=== PATIENT | male | born 1980 | race Caucasian/White ===

== ENCOUNTER 2017-09-04 16:56 | Emergency (ER) | payer OTHER, SELFPAY | END 2017-09-04 18:53 | disposition home or self-care (01) | PROVIDERS: Emergency Provider Emergency Medicine; Family Provider Nurse Practitioner Family; Visit Provider Emergency Medicine | DX: G45.9 Transient cerebral ischemic attack, unspecified (principal); I10 Essential (primary) hypertension; R51 Headache; Z72.0 Tobacco use; F41.8 Other specified anxiety disorders; Z79.82 Long term (current) use of aspirin; J45.909 Unspecified asthma, uncomplicated | CPT/HCPCS: 70450; 80053; 82550; 82553; 84484; 85025; 93005; 93041; 96374; 99284 ==

== ENCOUNTER → 2017-09-05 | Outpatient (POV) | payer OTHER, SELFPAY | PROVIDERS: Visit Provider Internal Medicine | DX: R07.9 Chest pain, unspecified (principal); I10 Essential (primary) hypertension | CPT/HCPCS: 93005 ==

== ENCOUNTER 2017-09-30 14:37 | Emergency (ER) | payer OTHER, SELFPAY ==
--- NOTE | 2017-09-30 | CT_ITS ---
CT head/brain wo con Ordering Physician: Lenin Sands MD Patient Age: 36 years: Male HISTORY: TECHNIQUE: Routine CT head without contrast. CT brain and bone windows performed and sent and submitted to PACS. COMPARISON :CT head 09/04/2017.. Also November 28, 2016 FINDINGS No acute intracranial findings. No hemorrhage. No mass. No subdural collection no territorial infarct. & Posterior fossa appears satisfactory. Unremarkable.. Ventricles and basal cisterns appear satisfactory, and clear Skull intact Paranasal sinuses. Mild to moderate mucosal thickening ethmoid air cells bilaterally. Scant mucosal thickening floor frontal sinuses just above junction with ethmoid air cells. Sphenoid sinus with scant mucosal thickening anteriorly as well.. Orbits unremarkable. Mastoid air cells, IACs, middle air appear satisfactory. No significant findings. Critical result called to ADRIANA in ER on 09/30/2017 3:10 PM. IMPRESSION: ========= No acute intracranial findings. Stable CT head versus 2017 studies Mild to moderate mucosal thickening ethmoid air cells bilateral instantly noted
[2017-09-30 14:37] VITALS: BP 150/88; PULSE 98; RESP 14; TEMP 36.7; O2SAT 98; BMI 27.1
--- NOTE | 2017-09-30 15:01 | PC.NURSE ---
PT RETURNED FROM CT
[2017-09-30 15:26] LABS: Basophils # 0.1 K/mm3 (0-0.2); Basophils % 0.8 % (0.1-2.0); Eosinophils # 0.9 K/mm3 (0.0-0.4); Eosinophils % 8.5 % (0.1-12.0); Hematocrit 48.9 % (42.0-52.0); Lymphocytes # 2.1 K/mm3 (0.7-4.5); Lymphocytes % 19.7 K/mm3 (10-50); Mean Corpuscular HGB Conc 32.6 g/dL (31.8-35.4); Mean Corpuscular Volume 91.9 fl (80-94); Mean Platelet Volume 7.8 fl (7.4-10.4); Monocytes # 0.5 K/mm3 (0.1-1.0); Monocytes % 4.8 % (1.7-9.3); Neutrophils # 7.1 K/mm3 (1.8-7.8); Neutrophils % 66.2 % (37.0-80.0); Platelet Count 462 K/mm3 (142-424); Red Blood Count 5.32 M/mm3 (4.60-6.20); White Blood Count 10.8 K/mm3 (4.8-10.8)
[2017-09-30 15:51] LABS: Alanine Aminotransferase 44 U/L (12-78); Alkaline Phosphatase 70 U/L (46-116); Anion Gap 12.9 mEq/L (5-15); Aspartate Amino Transferase 27 U/L (15-37); Bilirubin,Total 0.1 mg/dL (0.2-1.0); Blood Urea Nitrogen 19 mg/dL (7-18); Calcium 9.4 mg/dL (8.5-10.1); Carbon Dioxide 28 mmol/L (21.0-32.0); Chloride 101 mmol/L (98-107); Creatine Kinase 90 U/L (39-308); Creatinine Clearance Estimated 121 mL/min (0-300); Creatinine,Serum 1.08 mg/dL (0.70-1.30); Estimated Glomerular Filt Rate 77 ml/min (>60); GFR (African American) 94 ML/MIN (>60); Globulin 4.1 gm/dl (1.3-3.2); Glucose 93 mg/dL (74-106); Potassium 4.9 mmoL/L (3.5-5.1); Sodium 137 mmol/L (136-145); Total Protein,Serum 8.1 gm/dL (6.4-8.2); Troponin I < 0.02 ng/ml (0.00-0.06)
[2017-09-30 15:54] LABS: CKMB Relative Index 0.6 U/L (0-4.0); Creatine Kinase MB < 0.5 mg/ml (0.0-3.6)
[2017-09-30 16:29] VITALS: BP 124/88; PULSE 85; RESP 18; O2SAT 98
[2017-09-30 17:30] LABS: Creatine Kinase 90 U/L (39-308); Troponin I < 0.02 ng/ml (0.00-0.06)
[2017-09-30 17:37] LABS: CKMB Relative Index 0.6 U/L (0-4.0); Creatine Kinase MB < 0.5 mg/ml (0.0-3.6)
--- NOTE | 2017-09-30 17:45 | HMH.EDNEU ---
ED Disposition Clinical Impression: Adverse drug effect Qualifiers: Encounter type: initial encounter Qualified Code(s): T88.7XXA - Unspecified adverse effect of drug or medicament, initial encounter Chest pain Qualifiers: Chest pain type: other chest pain Qualified Code(s): R07.89 - Other chest pain Disposition: Home, Self-Care Condition on Discharge: Good Instructions: DI for Adverse Drug Reaction -- Other Additional Instructions: Please follow-up with your family physician as well as the patient clerical assistant in the next few days regarding your recent ER visit. Prescriptions: Butalb/Acetaminophen/Caffeine [Fioricet 50-300-40 mg Capsule] 1 each PO BID #6 cap Referrals: Candice Rowland APRN [Primary Care Provider] - Lucio Zapata MD [Staff Physician] - Forms: Work/School Release Time of Disposition: 17:47 - Critical Care Critical Care Time: No Attestation: On 09/30/17, the high probability of a clinically significant, sudden or life threatening deterioration of the following system(s) required my full and direct attention, intervention and personal management. The time I documented below is in addition to time spent performing reported procedures but includes the following listed in this critical care notation. Medical Decision Making - Medical Records Medical records reviewed: Yes: I reviewed the patient's medical records. Vital Signs: 09/30/17 14:37 09/30/17 16:29 09/30/17 18:03 Temperature 98.1 F 98.0 F Temperature Source Oral Oral Pulse Rate 96 H Pulse Rate [Left Brachial] 98 H 85 Respiratory Rate 14 18 20 Blood Pressure 146/86 Blood Pressure [Right Arm] 150/88 124/88 Blood Pressure Mean [Right Arm] 108 100 Blood Pressure Source Automatic Cuff Blood Pressure Source [Right Arm] Automatic Cuff Automatic Cuff Blood Pressure Position Sitting Blood Pressure Position [Right Arm] Sitting Sitting 02 Sat by Pulse Oximetry 98 98 Oxygen Delivery Method Room Air Room Air Room Air - Lab Data Lab results reviewed: Yes: I reviewed the patient's lab results. Lab Results 09/30/17 15:15: WBC 10.8, RBC 5.32, Hgb 16.0, Hct 48.9, MCV 91.9, MCH 30.0, MCHC 32.6, RDW 13.0, Plt Count 462 H, MPV 7.8, Neut % (Auto) 66.2, Lymph % (Auto) 19.7, [place] % (Auto) 4.8, Eos % (Auto) 8.5, Baso % (Auto) 0.8, Neut # (Auto) 7.1, Lymph # (Auto) 2.1, [place] # (Auto) 0.5, Eos # (Auto) 0.9 H, Baso # (Auto) 0.1 09/30/17 15:15: Sodium 137, Potassium 4.9, Chloride 101, Carbon Dioxide 28, Anion Gap 12.9, BUN 19 H, Creatinine 1.08, Estimated Creat Clear 121, Estimated GFR 77, Est GFR ( Amer) 94, Glucose 93, Calcium 9.4, Total Bilirubin 0.1 L, AST 27, ALT 44, Alkaline Phosphatase 70, Total Creatine Kinase 90, CK-MB (CK-2) < 0.5, CK-MB (CK-2) Rel Index 0.6, Troponin I < 0.02, Total Protein 8.1, Albumin 4.0, Globulin 4.1 H, Albumin/Globulin Ratio 1.0 L 09/30/17 17:05: Total Creatine Kinase 90, CK-MB (CK-2) < 0.5, CK-MB (CK-2) Rel Index 0.6, Troponin I < 0.02 Result diagrams: 09/30/17 15:15 09/30/17 15:15 Orders (Tests/Meds): ORDERS Category Date Time Status CT head request [CT Request head] Stat Cat Scan 09/30/17 14:45 Taken - CT Data CT Scan: Head Time Received: 14:[address] Reviewed: Yes: I have reviewed the patient's CT results, I discussed the CT results w/the radiologist, I have viewed the radiologist's interpretation Preliminary Findings: Normal/NAD - ECG Data Tracing #1 I reviewed this ECG and interpreted as documented below: NAD, no ectopy, no acute ischemic changes ECG normal with no acute: arrhythmias, ischemia, conduction abnormalities, chamber hypertrophy - Gil Inquiry Pt receiving controlled substance: No - Reevaluation(s) Time: 17:30 Reevaluation #1: patient in NAD, denies any complaints, he has had similar episodes in the past, fully worked p, I believe today's symptoms are due to new medication just started, Topamax. Advised pt to see his PCP and review his medications.
[2017-09-30 18:03] VITALS: BP 146/86; PULSE 96; RESP 20; TEMP 36.7; O2SAT 98
== END 2017-09-30 18:04 | disposition home or self-care (01) ==
PROVIDERS: Emergency Provider Emergency Medicine; PCP Nurse Practitioner Family
DX: R20.2 Paresthesia of skin (principal); R07.9 Chest pain, unspecified; T42.6X5A Adverse effect of other antiepileptic and sedative-hypnotic drugs, initial encounter; I10 Essential (primary) hypertension; Z86.73 Personal history of transient ischemic attack (TIA), and cerebral infarction without residual deficits; Z79.82 Long term (current) use of aspirin; Z79.899 Other long term (current) drug therapy; Z87.891 Personal history of nicotine dependence
CPT/HCPCS: 70450; 80053; 82550; 82553; 84484; 85025; 93005; 93041; 99284

== ENCOUNTER → 2017-10-02 11:50 | Outpatient (CLI) | payer OTHER, SELFPAY ==
--- NOTE | 2017-10-02 11:56 | XR_ITS ---
EXAM: XR cervical spine 5V HISTORY: ITS.REASON: numbness in deven arms ORDERING PHYSICIAN: Candice Rowland PATIENT AGE: 36 years COMPARISON: None FINDINGS: Normal alignment. No fracture or dislocation. No lytic or blastic change. No significant degenerative change. The disc spaces are preserved. No evidence of cervical rib IMPRESSION: Normal cervical spine
== END ==
PROVIDERS: PCP Nurse Practitioner Family; Visit Provider Nurse Practitioner Family
DX: R20.0 Anesthesia of skin (principal); R20.2 Paresthesia of skin; R51 Headache; Z86.73 Personal history of transient ischemic attack (TIA), and cerebral infarction without residual deficits
CPT/HCPCS: 72050

== ENCOUNTER → 2017-10-18 07:42 | Outpatient (CLI) | payer OTHER, SELFPAY ==
--- NOTE | 2017-10-18 07:45 | MR_ITS ---
MR head/brain wo con HISTORY: Headache, syncope, blurred vision, multiple TIAs and prior stroke ORDERING PHYSICIAN: Candice Rowland PATIENT AGE: 36 years COMPARISON: CT scan of 09/30/2017 TECHNIQUE: Standard multiplanar multiecho sequences are performed without contrast. FINDINGS: No midline shift or mass effect is evident. No hydrocephalus or acute infarction. There is normal joya-white matter differentiation with no abnormal white matter signal intensity apparent. No acute or chronic infarctions evident. The hippocampal Katerine right are unremarkable in the temporal horns are symmetric. No cerebellar tonsillar ectopia. The pituitary, optic chiasm, and corpus callosum have an unremarkable appearance. There is mild mucosal thickening of the ethmoid, sphenoid, and frontal sinuses. No sinus air-fluid level. No mastoid effusion. No large aneurysms are evident. Smaller aneurysms may not be seen with this technique and may be better evaluated with MRA if clinically warranted. IMPRESSION: 1. No acute intracranial findings. 2. Paranasal sinus disease
--- NOTE | 2017-10-18 07:45 | MR_ITS ---
MR cervical spine wo con, MR 3-d myelogram/MRCP HISTORY: Headaches and numbness and tingling in fingers ORDERING PHYSICIAN: Candice Rowland PATIENT AGE: 36 years COMPARISON: Cervical spine radiographs 10/02/2017 TECHNIQUE: Standard multiplanar multiecho sequences are performed without contrast. 3-D MIP and myelographic images are also rendered and reviewed FINDINGS: The craniocervical junction has an unremarkable appearance. There is normal alignment. C2-C3: Mild concentric bulging disc. No impingement. C3-C4, C4-C5, C5-C6, C6-C7 and C7-T1 have an unremarkable appearance. No disc herniation or canal stenosis. No paravertebral mass or abnormal fluid collection. The spinal cord has unremarkable signal characteristics. IMPRESSION: Mild concentric bulging disc at C2-C3 otherwise negative MRI of the cervical spine
== END ==
PROVIDERS: PCP Nurse Practitioner Family; Visit Provider Nurse Practitioner Family
DX: Z86.73 Personal history of transient ischemic attack (TIA), and cerebral infarction without residual deficits (principal); R51 Headache; R20.0 Anesthesia of skin; R20.2 Paresthesia of skin
CPT/HCPCS: 70551; 72141; 76376

== ENCOUNTER 2017-10-30 16:12 | Emergency (ER) | payer OTHER, SELFPAY ==
[2017-10-30 16:38] VITALS: BP 151/86; PULSE 102; RESP 18; TEMP 36.6; O2SAT 96; BMI 21.8
--- NOTE | 2017-10-30 18:03 | HMH.EDGENADL ---
ED Disposition Clinical Impression: Anxiety Insomnia Qualifiers: Insomnia type: due to other mental disorder Qualified Code(s): F51.05 - Insomnia due to other mental disorder; F99 - Mental disorder, not otherwise specified Bipolar disorder Qualifiers: Active/Remission status: currently active Current bipolar episode type: manic Current episode severity: moderate Qualified Code(s): F31.12 - Bipolar disorder, current episode manic without psychotic features, moderate Disposition: Home, Self-Care Condition on Discharge: Good Instructions: DI for Anxiety -- Adult, DI for Insomnia, DI for Bipolar Disorder Additional Instructions: Call Candice Rowland tomorrow for further treatment. Additional instructions for CONTROLLED SUBSTANCES: You have been prescribed a medication that is a controlled substance. Controlled substances include pain medications known as opiates and sedative nerve medications known as benzodiazepines. Some common opiates include: Codeine (such as Tylenol #3) Hydrocodone (Vicodin, Lortab, Lorcet, Brohard) Oxycodone (Percocet, Percodan, Oxycodone, Oxy IR) Some common benzodiazepines include: Diazepam (Valium) Lorazepam (Ativan) Alprazolam (Xanax) Clonazepam (Klonopin) Oxazepam (Serax) All of these controlled substances are highly addictive and frequently abused. Misuse can and frequently does lead to addiction as well as overdose and . Medication should be stored in a locked cabinet or other secure storage unit. Do not store the medication in a motor vehicle. Short term supplies, 3 days or less, are prescribed because of the highly addictive nature of the medication. Any of the controlled substance medication NOT taken should be disposed of properly and NOT SAVED. The recommended method of disposing of unused medications is: Place the medicines in a sealable plastic bag. If the medicine is a solid, crush it or add water to dissolve it. Add something undesirable (cat litter, coffee grounds, etc.) Dispose of sealed bag in household trash Do not flush or pour unused medicines down a sink or drain. Controlled substances should not be shared, given away or sold. Because of the addictive nature and frequent abuse, these medications are sometimes stolen. These medications should be kept in a safe place where they cannot be stolen. Do not keep them in your car or purse. Lost or stolen prescriptions for controlled substances WILL NOT BE REFILLED in this emergency department, regardless of whether a police report was filed. Prescriptions: LORazepam [Ativan 1mg tablet] 1 mg PO TIDP PRN #3 tab PRN Reason: Anxiety Referrals: Candice Rowland APRN [Primary Care Provider] - - Critical Care Critical Care Time: No Attestation: On 10/30/17, the high probability of a clinically significant, sudden or life threatening deterioration of the following system(s) required my full and direct attention, intervention and personal management. The time I documented below is in addition to time spent performing reported procedures but includes the following listed in this critical care notation. Medical Decision Making Vital Signs: 10/30/17 16:38 Temperature 97.8 F Temperature Source Oral Pulse Rate [Right Brachial] 102 H Respiratory Rate 18 Blood Pressure [Right Arm] 151/86 Blood Pressure Mean [Right Arm] 107 Blood Pressure Source [Right Arm] Automatic Cuff Blood Pressure Position [Right Arm] Sitting 02 Sat by Pulse Oximetry 96 Oxygen Delivery Method Room Air - ECG Data Tracing #1 EKG interpreted by Jorge Benites MD: Rhythm: sinus Rate: * [place]: normal Ectopy: none Conduction: normal ST Segment Changes: none T Wave Changes: none Q Waves: none No evidence of acute ischemia or injury Normal EKG - Gil Inquiry Pt receiving controlled substance: Yes Gil was queried for this patient: Yes Reference #:: [id number] Risks and benefits of using a controlled substance: were
[2017-10-30 20:38] VITALS: BP 133/92; PULSE 96; RESP 20; TEMP 36.6; O2SAT 98
== END 2017-10-30 20:38 | disposition home or self-care (01) ==
PROVIDERS: Emergency Provider Emergency Medicine; PCP Nurse Practitioner Family
DX: F41.9 Anxiety disorder, unspecified (principal); F51.05 Insomnia due to other mental disorder; F99 Mental disorder, not otherwise specified; F31.12 Bipolar disorder, current episode manic without psychotic features, moderate; R07.9 Chest pain, unspecified; Z86.73 Personal history of transient ischemic attack (TIA), and cerebral infarction without residual deficits; Z86.79 Personal history of other diseases of the circulatory system
CPT/HCPCS: 93005; 96372; 99281; 99282

== ENCOUNTER 2017-11-02 19:50 | Emergency (ER) | payer OTHER, SELFPAY ==
[2017-11-02 19:54] VITALS: BP 132/83; PULSE 77; RESP 18; TEMP 36.6; O2SAT 95; BMI 28.5
--- NOTE | 2017-11-02 20:12 | XR_ITS ---
XR chest 2V Ordering Physician: Jorge Benites MD Patient Age: 36 years: Male HISTORY: ITS.REASON: medical clearance smoker TECHNIQUE: PA and lateral chest COMPARISON :12/03/2016 CXR FINDINGS Lungs well expanded and clear with nothing definitely acute.. No pneumothorax no consolidation. Chest wall and T-spine unremarkable. Heart, tana and mediastinal structures stable and satisfactory. IMPRESSION: Stable chest. nothing definitely acute. Lungs clear
--- NOTE | 2017-11-02 20:15 | HMH.EDGENADL ---
ED Disposition Clinical Impression: Manic episode Disposition: Home, Self-Care Condition on Discharge: Fair Additional Instructions: Go to [facility] emergency department now. Take results of medical clearance tests with you. Referrals: Candice Rowland APRN [Primary Care Provider] - - Critical Care Critical Care Time: No Attestation: On , the high probability of a clinically significant, sudden or life threatening deterioration of the following system(s) required my full and direct attention, intervention and personal management. The time I documented below is in addition to time spent performing reported procedures but includes the following listed in this critical care notation. Medical Decision Making Vital Signs: 11/02/17 19:54 Temperature 97.8 F Temperature Source Oral Pulse Rate [Right Radial] 77 Respiratory Rate 18 Blood Pressure [Right Arm] 132/83 Blood Pressure Mean [Right Arm] 99 Blood Pressure Source [Right Arm] Automatic Cuff Blood Pressure Position [Right Arm] Supine 02 Sat by Pulse Oximetry 95 Oxygen Delivery Method Room Air - Lab Data Lab Results 11/02/17 20:27: WBC 8.8, RBC 4.40 L, Hgb 13.3 L, Hct 40.1 L, MCV 91.1, MCH 30.2, MCHC 33.1, RDW 13.6, Plt Count 397, MPV 7.2 L, Neut % (Auto) 46.2, Lymph % (Auto) 37.7, [place] % (Auto) 7.0, Eos % (Auto) 8.4, Baso % (Auto) 0.7, Neut # (Auto) 4.1, Lymph # (Auto) 3.3, [place] # (Auto) 0.6, Eos # (Auto) 0.8 H, Baso # (Auto) 0.1 11/02/17 20:27: Sodium 139, Potassium 4.0, Chloride 105, Carbon Dioxide 28, Anion Gap 10.0, BUN 18, Creatinine 1.27, Estimated Creat Clear 111, Estimated GFR 64, Est GFR ( Amer) 78, Glucose 99, Calcium 8.9, Total Bilirubin 0.2, AST 14 L, ALT 38, Alkaline Phosphatase 61, Troponin I < 0.02, Total Protein 7.5, Albumin 3.7, Globulin 3.8 H, Albumin/Globulin Ratio 1.0 L, Plasma/Serum Alcohol 0 11/02/17 20:38: Urine Color Yellow, Urine Appearance Clear, Urine pH 6.5, Ur Specific [place] 1.010, Urine Protein Negative, Urine Glucose (UA) Negative, Urine Ketones Negative, Urine Blood Negative, Urine Nitrate Negative, Urine Bilirubin Negative, Urine Urobilinogen 0.2, Ur Leukocyte Esterase Negative, Amorphous Sediment Trace 11/02/17 20:38: Urine Opiates Screen Negative, Ur Barbituates Screen Positive H, Ur Phencyclidine Scrn Negative, Ur Amphetamines Screen Negative, U Methamphetamines Scrn Negative, U Benzodiazepines Scrn Negative, Urine Cocaine Screen Negative, U Marijuana (THC) Screen Negative Result diagrams: 11/02/17 20:27 11/02/17 20:27 Orders (Tests/Meds): ORDERS Category Date Time Status Chest XR 2 view (NOT portable) [XR chest 2V] Stat Exams 11/02/17 20:12 Taken ECG Request by /Tesha Stat Y 11/02/17 20:12 Ordered - Radiology Data #1 Image(s): Chest Image Reviewed: Yes I reviewed the patient's radiology results Preliminary Findings: Normal/NAD - ECG Data Tracing #1 EKG interpreted by Jorge Benites MD: Rhythm: sinus Rate: 71 [place]: normal Ectopy: none Conduction: normal ST Segment Changes: none T Wave Changes: none Q Waves: none No evidence of acute ischemia or injury Normal EKG - Gil Inquiry Pt receiving controlled substance: No Medical Decision Making Narrative: 9:25 PM: Call placed to [facility]. They will not accept the patient as a transfer. They instructed the patient must present there to their emergency room after being discharged from our facility and they will evaluate him in the emergency room for admission. They do currently have beds, but will not guarantee an admission. He may take his medical clearance results with him. Nurse (Arcadio) reports that [facility] psychiatric intake person indicated they would not accept him as an ER to ER should her nor as a transfer to their psychiatric unit, but that he had to present to the emergency room after being discharged from here. 9:39 PM: Nurse spoke with his who is agreeable with the plan. The person giving
[2017-11-02 20:45] LABS: Microscopic, Urine URINE MICROSCOPIC (MICROSCOPIC)
[2017-11-02 20:46] LABS: Basophils # 0.1 K/mm3 (0-0.2); Basophils % 0.7 % (0.1-2.0); Eosinophils # 0.8 K/mm3 (0.0-0.4); Eosinophils % 8.4 % (0.1-12.0); Hematocrit 40.1 % (42.0-52.0); Hemoglobin 13.3 g/dL (14.1-18.0); Lymphocytes # 3.3 K/mm3 (0.7-4.5); Lymphocytes % 37.7 K/mm3 (10-50); Mean Corpuscular HGB Conc 33.1 g/dL (31.8-35.4); Mean Corpuscular Hemoglobin 30.2 pg (27.0-31.2); Mean Corpuscular Volume 91.1 fl (80-94); Mean Platelet Volume 7.2 fl (7.4-10.4); Monocytes # 0.6 K/mm3 (0.1-1.0); Neutrophils # 4.1 K/mm3 (1.8-7.8); Neutrophils % 46.2 % (37.0-80.0); Platelet Count 397 K/mm3 (142-424); Red Cell Distribution Width 13.6 % (11.5-17.5); White Blood Count 8.8 K/mm3 (4.8-10.8)
[2017-11-02 20:46] LABS: Appearance,Urine CLEAR (Clear); Bilirubin,Urine Negative (Negative); Blood, Urine Negative (Negative); Color,Urine YELLOW (Yellow); Glucose,Urine (UA) Negative (Negative); Ketones,Urine Negative (Negative); Leukocyte Esterase,Urine Negative (Negative); Nitrate,Urine Negative (Negative); PH,Urine 6.5 (5.0-8.5); Protein,Urine Negative (Negative); Urobilinogen,Urine 0.2 EU/dl (0.2)
[2017-11-02 20:51] LABS: Amorphous Sediment,Urine Trace /lpf
[2017-11-02 20:52] LABS: Amphetamine/Metha Screen,Urine Negative ng/mL (<1000); Barbiturates Screen,Urine Positive ng/mL (<200); Benzodiazepines Screen,Urine Negative ng/mL (200); Cannabinoid Screen,Urine Negative ng/mL (<50); Cocaine Screen,Urine Negative ng/g (<300); Methadone Screen,Urine Negative ng/mL (<300); Opiate Screen,Urine Negative ng/mL (<300); Phencyclidine Screen,Urine Negative ng/mL (<25)
[2017-11-02 20:57] LABS: Alanine Aminotransferase 38 U/L (12-78); Albumin Level 3.7 gm/dL (3.4-5.0); Alkaline Phosphatase 61 U/L (46-116); Aspartate Amino Transferase 14 U/L (15-37); Bilirubin,Total 0.2 mg/dL (0.2-1.0); Blood Urea Nitrogen 18 mg/dL (7-18); Calcium 8.9 mg/dL (8.5-10.1); Carbon Dioxide 28 mmol/L (21.0-32.0); Chloride 105 mmol/L (98-107); Creatinine Clearance Estimated 111 mL/min (0-300); Creatinine,Serum 1.27 mg/dL (0.70-1.30); Estimated Glomerular Filt Rate 64 ml/min (>60); GFR (African American) 78 ML/MIN (>60); Globulin 3.8 gm/dl (1.3-3.2); Glucose 99 mg/dL (74-106); Sodium 139 mmol/L (136-145); Total Protein,Serum 7.5 gm/dL (6.4-8.2); Troponin I < 0.02 ng/ml (0.00-0.06)
[2017-11-02 20:58] LABS: Ethyl Alcohol 0 mg/dL (0-99)
[2017-11-02 21:49] VITALS: BP 138/80; PULSE 82; RESP 16; TEMP 36.7; O2SAT 96
== END 2017-11-02 21:55 | disposition home or self-care (01) ==
PROVIDERS: Emergency Provider Emergency Medicine; PCP Nurse Practitioner Family
DX: F30.9 Manic episode, unspecified (principal); F31.9 Bipolar disorder, unspecified; Z86.73 Personal history of transient ischemic attack (TIA), and cerebral infarction without residual deficits; F17.210 Nicotine dependence, cigarettes, uncomplicated; I10 Essential (primary) hypertension; Z79.82 Long term (current) use of aspirin; Z79.899 Other long term (current) drug therapy
CPT/HCPCS: 71046; 80053; 80305; 81001; 84484; 85025; 93005; 99282

== ENCOUNTER 2017-11-22 18:22 | Emergency (ER) | payer OTHER, SELFPAY ==
[2017-11-22 18:22] VITALS: BP 162/88; PULSE 80; RESP 16; TEMP 36.7; O2SAT 98; BMI 29.8
--- NOTE | 2017-11-22 18:32 | HMH.EDGENADL ---
ED Disposition Condition on Discharge: [facility] Critical Care Critical Care Time: No <DelmisJorge - Last Filed: 11/22/17 20:04> <Ger Smith - Last Filed: 11/22/17 22:14> Clinical Impression: Chest pain Qualifiers: Chest pain type: precordial pain Qualified Code(s): R07.2 - Precordial pain Disposition: Home, Self-Care Instructions: DI for Atypical Chest Pain Additional Instructions: see pcp for follow up Referrals: Candice Rowland APRN [Primary Care Provider] - Attestation: On 11/22/17, the high probability of a clinically significant, sudden or life threatening deterioration of the following system(s) required my full and direct attention, intervention and personal management. The time I documented below is in addition to time spent performing reported procedures but includes the following listed in this critical care notation. Medical Decision Making - Medical Records MR Comment: Normal heart cath 09/18/16, normal stress test 09/07/16. Seen here on 11/02/17 in the emergency department, by me, medically cleared for psychiatric evaluation at [facility]. He says he was admitted for 2 days and is improved. - Lab Data Result diagrams: 11/22/17 18:19 11/22/17 18:19 - Radiology Data #1 Image(s): Chest Image Reviewed: Yes I reviewed the patient's radiology image Preliminary Findings: Normal/NAD - Gil Inquiry Pt receiving controlled substance: No <DelmisJorge - Last Filed: 11/22/17 20:04> - Lab Data Result diagrams: 11/22/17 18:19 11/22/17 18:19 <Ger Smith - Last Filed: 11/22/17 22:14> Vital Signs: 11/22/17 18:22 11/22/17 19:15 11/22/17 20:30 Temperature 98.1 F Temperature Source Oral Pulse Rate [Right Brachial] 80 72 80 Respiratory Rate 16 12 Blood Pressure [Right Arm] 162/88 127/75 145/87 Blood Pressure Mean [Right Arm] 112 92 106 Blood Pressure Source [Right Arm] Automatic Cuff Automatic Cuff Automatic Cuff Blood Pressure Position [Right Arm] Supine Sitting Sitting 02 Sat by Pulse Oximetry 98 98 99 Oxygen Delivery Method Room Air Room Air Room Air - Lab Data Lab Results 11/22/17 18:19: WBC 8.5, RBC 4.59 L, Hgb 13.9 L, Hct 42.8, MCV 93.2, MCH 30.2, MCHC 32.4, RDW 14.1, Plt Count 491 H, MPV 7.3 L, Neut % (Auto) 49.5, Lymph % (Auto) 34.0, [place] % (Auto) 7.5, Eos % (Auto) 8.1, Baso % (Auto) 0.9, Neut # (Auto) 4.2, Lymph # (Auto) 2.9, [place] # (Auto) 0.6, Eos # (Auto) 0.7 H, Baso # (Auto) 0.1 11/22/17 18:19: Sodium 138, Potassium 4.4, Chloride 103, Carbon Dioxide 27, Anion Gap 12.4, BUN 14, Creatinine 1.00, Estimated Creat Clear 143, Estimated GFR 84, Est GFR ( Amer) 102, Glucose 92, Calcium 8.9, Total Bilirubin 0.0 L, AST 21, ALT 63, Alkaline Phosphatase 70, Total Creatine Kinase 155, CK-MB (CK-2) < 0.5, CK-MB (CK-2) Rel Index 0.3, Troponin I < 0.02, Total Protein 7.4, Albumin 3.6, Globulin 3.8 H, Albumin/Globulin Ratio 0.9 L 11/22/17 21:30: Troponin I < 0.02 Orders (Tests/Meds): ED MEDICATIONS Generic Name Dose Route Start Last Admin Trade Name Freq PRN Reason Stop Dose Admin Nitroglycerin 0.4 mg 11/22/17 18:45 11/22/17 19:21 Nitrostat 0.4mg Sl Tablet SL 12/22/17 18:44 0.4 mg [id number] PRN Administration Chest Pain Discontinued Medications Generic Name Dose Route Start Last Admin Trade Name Freq PRN Reason Stop Dose Admin Aspirin 243 mg 11/22/17 18:45 11/22/17 19:01 Aspirin 81mg Enteric Coated Tablet PO 11/22/17 18:46 243 mg ONCE ONE Administration ORDERS Category Date Time Status Chest XR 2 view (NOT portable) [XR chest 2V] Stat Exams 11/22/17 18:44 Taken - ECG Data Tracing #1 EKG interpreted by Jorge Benites MD: Rhythm: sinus Rate: 84 [place]: normal Ectopy: none Conduction: normal ST Segment Changes: none T Wave Changes: none Q Waves: none No evidence of acute ischemia or injury Normal electrocardiogram (Jorge Benites) Medical Decision Making Narrative:
--- NOTE | 2017-11-22 18:44 | XR_ITS ---
XR chest 2V Ordering Physician: Jorge Benites MD Patient Age: 37 years: Male HISTORY: ITS.REASON: cp Chest pain started this afternoon. Smoker. No surgery.. TECHNIQUE: PA and lateral chest COMPARISON :2 view chest from October 2017 FINDINGS Lungs well expanded and clear with no active disease. No focal pneumonia. No pneumothorax. No pleural effusion. Chest wall unremarkable. Heart is normal size. Normal pulmonary vascularity. Monika and mediastinal structures appear satisfactory. A few small calcified granuloma and calcified node seen more evident on right chest the left IMPRESSION Stable chest Nothing definitely acute. Lungs clear .
[2017-11-22 19:01] LABS: Basophils # 0.1 K/mm3 (0-0.2); Basophils % 0.9 % (0.1-2.0); Eosinophils # 0.7 K/mm3 (0.0-0.4); Eosinophils % 8.1 % (0.1-12.0); Hematocrit 42.8 % (42.0-52.0); Hemoglobin 13.9 g/dL (14.1-18.0); Lymphocytes # 2.9 K/mm3 (0.7-4.5); Mean Corpuscular HGB Conc 32.4 g/dL (31.8-35.4); Mean Corpuscular Hemoglobin 30.2 pg (27.0-31.2); Mean Corpuscular Volume 93.2 fl (80-94); Mean Platelet Volume 7.3 fl (7.4-10.4); Monocytes # 0.6 K/mm3 (0.1-1.0); Monocytes % 7.5 % (1.7-9.3); Neutrophils # 4.2 K/mm3 (1.8-7.8); Neutrophils % 49.5 % (37.0-80.0); Platelet Count 491 K/mm3 (142-424); Red Blood Count 4.59 M/mm3 (4.60-6.20); Red Cell Distribution Width 14.1 % (11.5-17.5); White Blood Count 8.5 K/mm3 (4.8-10.8)
[2017-11-22 19:15] VITALS: BP 127/75; PULSE 72; RESP 12; O2SAT 98
[2017-11-22 19:24] LABS: Alanine Aminotransferase 63 U/L (12-78); Albumin Level 3.6 gm/dL (3.4-5.0); Albumin/Globulin Ratio 0.9 (1.1-1.8); Alkaline Phosphatase 70 U/L (46-116); Anion Gap 12.4 mEq/L (5-15); Blood Urea Nitrogen 14 mg/dL (7-18); CKMB Relative Index 0.3 U/L (0-4.0); Calcium 8.9 mg/dL (8.5-10.1); Carbon Dioxide 27 mmol/L (21.0-32.0); Chloride 103 mmol/L (98-107); Creatine Kinase 155 U/L (39-308); Creatine Kinase MB < 0.5 mg/ml (0.0-3.6); Creatinine Clearance Estimated 143 mL/min (0-300); Estimated Glomerular Filt Rate 84 ml/min (>60); GFR (African American) 102 ML/MIN (>60); Globulin 3.8 gm/dl (1.3-3.2); Glucose 92 mg/dL (74-106); Sodium 138 mmol/L (136-145); Total Protein,Serum 7.4 gm/dL (6.4-8.2); Troponin I < 0.02 ng/ml (0.00-0.06)
[2017-11-22 19:26] LABS: Aspartate Amino Transferase 21 U/L (15-37); Potassium 4.4 mmoL/L (3.5-5.1)
[2017-11-22 20:30] VITALS: BP 145/87; PULSE 80; O2SAT 99
[2017-11-22 21:54] LABS: Troponin I < 0.02 ng/ml (0.00-0.06)
[2017-11-22 22:22] VITALS: BP 118/78; PULSE 77; RESP 14; TEMP 36.9; O2SAT 99
== END 2017-11-22 22:24 | disposition home or self-care (01) ==
PROVIDERS: Emergency Provider Emergency Medicine; PCP Nurse Practitioner Family
DX: R07.2 Precordial pain (principal); Z86.73 Personal history of transient ischemic attack (TIA), and cerebral infarction without residual deficits; I10 Essential (primary) hypertension; F31.9 Bipolar disorder, unspecified; F41.8 Other specified anxiety disorders; F17.210 Nicotine dependence, cigarettes, uncomplicated; Z90.49 Acquired absence of other specified parts of digestive tract; Z79.82 Long term (current) use of aspirin
CPT/HCPCS: 71046; 80053; 82550; 82553; 84484; 85025; 93005; 99284

== ENCOUNTER 2017-12-13 17:30 | Outpatient (RCR) | payer OTHER, SELFPAY | END 2017-12-13 17:31 | disposition home or self-care (01) | LOC: PT 17:30 | PROVIDERS: PCP Nurse Practitioner Family; Visit Provider Psychiatry & Neurology Neurology | DX: R51 Headache (principal) | CPT/HCPCS: 97010; 97012; 97014; 97110; G0283 ==

== ENCOUNTER → 2017-12-20 10:52 | Outpatient (REF) | payer OTHER, SELFPAY ==
[2017-12-20 18:57] LABS: Amphetamine/Metha Screen,Urine Negative ng/mL (<1000); Barbiturates Screen,Urine Negative ng/mL (<200); Benzodiazepines Screen,Urine Negative ng/mL (200); Cannabinoid Screen,Urine Negative ng/mL (<50); Cocaine Screen,Urine Negative ng/g (<300); Methadone Screen,Urine Negative ng/mL (<300); Opiate Screen,Urine Negative ng/mL (<300); Phencyclidine Screen,Urine Negative ng/mL (<25)
[2017-12-26 03:37] LABS: Alprazolam Negative (Cutoff=100); Benzodiazepines Negative ng/mL (Cutoff=100); Clonazepam Negative (Cutoff=100); Flurazepam Negative (Cutoff=100); Lorazepam Negative (Cutoff=100); Midazolam Negative (Cutoff=100); Temazepam Negative (Cutoff=100); Triazolam Negative (Cutoff=100)
== END ==
LOC: LAB 10:52
PROVIDERS: Visit Provider Nurse Practitioner Family
DX: Z79.899 Other long term (current) drug therapy (principal)
CPT/HCPCS: 80305; 80346

== ENCOUNTER → 2018-01-02 19:40 | Outpatient (CLI) | payer OTHER, SELFPAY ==
[2018-01-02 20:02] LABS: Basophils # 0.1 K/mm3 (0-0.2); Basophils % 0.8 % (0.1-2.0); Eosinophils # 0.7 K/mm3 (0.0-0.4); Eosinophils % 8.1 % (0.1-12.0); Hematocrit 43.3 % (42.0-52.0); Hemoglobin 14.4 g/dL (14.1-18.0); Lymphocytes # 2.6 K/mm3 (0.7-4.5); Lymphocytes % 30.1 K/mm3 (10-50); Mean Corpuscular HGB Conc 33.2 g/dL (31.8-35.4); Mean Corpuscular Volume 93.4 fl (80-94); Mean Platelet Volume 7.1 fl (7.4-10.4); Monocytes # 0.6 K/mm3 (0.1-1.0); Monocytes % 7.3 % (1.7-9.3); Neutrophils # 4.6 K/mm3 (1.8-7.8); Neutrophils % 53.7 % (37.0-80.0); Platelet Count 484 K/mm3 (142-424); Red Blood Count 4.64 M/mm3 (4.60-6.20); Red Cell Distribution Width 12.9 % (11.5-17.5); White Blood Count 8.5 K/mm3 (4.8-10.8)
[2018-01-02 20:29] LABS: Alanine Aminotransferase 24 U/L (12-78); Albumin Level 4.6 gm/dL (3.4-5.0); Albumin/Globulin Ratio 1.2 (1.1-1.8); Alkaline Phosphatase 78 U/L (46-116); Anion Gap 15.2 mEq/L (5-15); Aspartate Amino Transferase 22 U/L (15-37); Bilirubin,Total 0.6 mg/dL (0.2-1.0); Blood Urea Nitrogen 12 mg/dL (7-18); Carbon Dioxide 29 mmol/L (21.0-32.0); Chloride 101 mmol/L (98-107); Creatinine,Serum 1.01 mg/dL (0.70-1.30); Estimated Glomerular Filt Rate 83 ml/min (>60); GFR (African American) 101 ML/MIN (>60); Glucose 88 mg/dL (74-106); Potassium 4.2 mmoL/L (3.5-5.1); Sodium 141 mmol/L (136-145); Total Protein,Serum 8.6 gm/dL (6.4-8.2)
== END ==
PROVIDERS: Visit Provider Nurse Practitioner Family
DX: M25.471 Effusion, right ankle; M25.472 Effusion, left ankle
CPT/HCPCS: 36415; 80053; 83880; 85025

== ENCOUNTER 2019-08-14 19:34 | Outpatient (CLI) | payer OTHER, SELFPAY ==
[2019-08-14 19:41] VITALS: BMI 25.0
== END 2019-08-14 19:52 | disposition home or self-care (01) ==
PROVIDERS: PCP Nurse Practitioner Family; Visit Provider Nurse Practitioner Family
DX: H66.90 Otitis media, unspecified, unspecified ear (principal)

== ENCOUNTER 2019-09-11 20:01 | Emergency (ER) | payer OTHER, SELFPAY ==
[2019-09-11 20:01] VITALS: BP 164/113; PULSE 121; RESP 18; O2SAT 99; BMI 24.4
--- NOTE | 2019-09-11 20:51 | HMH.EDUTC ---
[facility] [place] Clinical Impression: Laceration Disposition: Home, Self-Care Condition on Discharge: Good Instructions: How to Care for a Laceration After Repair, DI for Laceration Repair, DI for Laceration Repair -- Simple, Laceration Repair Additional Instructions: You have required stitches today. Please read the following instructions so you know how to care for them: 1. Keep wound area dry for the first 24 hours. 2 May clean gently with mild soap and water, after 48 hours to prevent crusting over suture knots. 3. You may shower if your provider gives permission but do not take a bath until the skin is healed.. 4. Never leave a wet dressing or Band-Aid on your stitches as this allows bacteria to reach the area and may cause infection. Band-aids can cause the wound to sweat and not recommended to wear for long periods of time no neosporin after today Watch for signs of infection: Increasing redness, tenderness or warmth around the suture site Unusual swelling around the site Appearance of pus around each suture or any red streaks Fever If you develop any of the above signs or symptoms of infection, Follow up with Family Physician immediately 5. Suture removal in _7-10___days 6. Return to [facility] or follow up with family doctor for removal. This can be done by any medical provider during regular hours on Saturday through Saturday, by appointment. Referrals: Candice Rowland APRN [Primary Care Provider] - As needed Time of Disposition: 21:16 Medical Decision Making - Gil Inquiry Pt receiving controlled substance: No Gil was queried for this patient: No Vital Signs: 09/11/19 20:01 Pulse Rate [Radial] 121 H Respiratory Rate 18 Blood Pressure [Right Arm] 164/113 H Blood Pressure Mean [Right Arm] 130 Blood Pressure Source [Right Arm] Automatic Cuff Blood Pressure Position [Right Arm] Sitting 02 Sat by Pulse Oximetry 99 Oxygen Delivery Method Room Air Orders (Tests/Meds): ED MEDICATIONS Discontinued Medications Generic Name Dose Route Start Last Admin Trade Name Freq PRN Reason Stop Dose Admin Tetanus/Diphtheria Toxoids 0.5 ml 09/11/19 20:30 09/11/19 20:39 Tenivac 0.5ml Syringe IM 09/11/19 20:31 0.5 ml .ONCE ONE Administration [facility] [place] - General Stated complaint: AO [id number] @1930 Lac to R arm Time Seen by Provider: 09/11/19 20:51 Mode of Arrival: Ambulatory Source of Information: Patient Limitations: No Limitations Description of Symptoms (Recalled from Triage Doc. by RN): LACERATION TO LEFT FOREARM HEENT Symptoms (Recalled from RN notes): No Resp Symptoms (Recalled from RN notes): No Skin Symptoms (Recalled from RN notes): Yes MS Symptoms (Recalled from RN notes): No Functional Status (Recalled from RN notes): WNL - History of Present Illness Provider Complaint: Patient state that he was using a gio earlier when it slipped and hit him in his left forearm area causing abrasion with laceration to left fore arm States that he immediately wrapped his arm and cleaned it with peroxide and came on in to [facility] to have it looked at and get tetanus shot - Related Data Home Medications Medication Instructions Recorded Confirmed atenolol 50 mg tablet 50 mg PO DAILY 01/20/19 08/19/19 Previous Rx's Medication Instructions Recorded aspirin 81 mg tablet,delayed 81 mg PO QDAY #30 tab 01/13/18 release amlodipine 10 mg tablet 10 mg PO BID #60 tab 05/08/19 propranolol 80 mg capsule,24 80 mg PO QDAY #30 cap 05/08/19 hr,extended release omeprazole 40 mg capsule,delayed 40 mg PO DAILY #30 cap 06/16/19 release trazodone 50 mg tablet 50 mg PO QHS #30 tab 06/19/19 lamotrigine 150 mg tablet 150 mg PO BID 30 Days #60 tab 07/24/19 olanzapine 20 mg tablet 20 mg PO QHS #30 tab 07/24/19 bawgbfgsxg-hjlghtrjxxxkv-plkikmsl 1 cap PO TID PRN 3 Days #7 cap 08/19/19 50 mg-300 mg-40 mg capsule Allergies Allergy/AdvReac Type Severity Reaction Status Date / Time No Known Allergies Allergy
[2019-09-11 21:14] VITALS: BP 148/80; PULSE 90; RESP 18; TEMP 36.7; O2SAT 99
== END 2019-09-11 21:17 | disposition home or self-care (01) ==
PROVIDERS: Emergency Provider Nurse Practitioner; PCP Nurse Practitioner Family
DX: S51.812A Laceration without foreign body of left forearm, initial encounter (principal); W31.2XXA Contact with powered woodworking and forming machines, initial encounter; Y92.019 Unspecified place in single-family (private) house as the place of occurrence of the external cause; Z23 Encounter for immunization; J44.9 Chronic obstructive pulmonary disease, unspecified; I10 Essential (primary) hypertension; F41.9 Anxiety disorder, unspecified; F17.210 Nicotine dependence, cigarettes, uncomplicated; Z79.899 Other long term (current) drug therapy
CPT/HCPCS: 12001; 90471; 90714; 99201

== ENCOUNTER → 2019-10-15 16:40 | Outpatient (CLI) | payer OTHER, SELFPAY ==
--- NOTE | 2019-10-15 | XR_ITS ---
PROCEDURE: XR CHEST 2V CLINICAL HISTORY: COUGH; SOB COMPARISON: CTAC CTA-CHEST from 09/03/2016 CXR2V XR chest 2V from 11/22/2017 CXR2V XR chest 2V from 08/01/2018 CXR2V XR chest 2V from 02/02/2019 FINDINGS: The cardiomediastinal silhouette and pulmonary vascularity are within normal limits. The lungs are clear without infiltrates, suspicious nodules, or pleural effusions. No acute bony abnormalities. IMPRESSION: No acute findings. Dictated by: Oliver Hurley MD 10/15/2019 16:56 Electronically signed by Oliver Hurley MD in [place] 10/15/2019 16:56
== END ==
PROVIDERS: PCP Nurse Practitioner Family; Visit Provider Nurse Practitioner Family
DX: R05 Cough (principal); R06.02 Shortness of breath
CPT/HCPCS: 71046

== ENCOUNTER → 2019-11-23 09:10 | Outpatient (CLI) | payer OTHER, SELFPAY ==
--- NOTE | 2019-11-23 09:20 | XR_ITS ---
PROCEDURE: XR WRIST RT MIN 3V CLINICAL INDICATION: wrist pain Pain and numbness COMPARISON: WRL3 WRIST-3 VIEWS-LT from 12/14/2015 WRL3 WRIST-3 VIEWS-LT from 10/14/2016 FINDINGS: No fracture, dislocation, lytic change, or blastic change evident. No significant degenerative change IMPRESSION: Negative right wrist Dictated by: Oliver Hurley MD 11/23/2019 09:48 Electronically signed by Oliver Hurley MD in [place] 11/23/2019 09:48
--- NOTE | 2019-11-23 09:20 | XR_ITS ---
PROCEDURE: XR WRIST LT MIN 3V CLINICAL INDICATION: wrist pain Pain and numbness COMPARISON: WRL3 WRIST-3 VIEWS-LT from 12/14/2015 WRL3 WRIST-3 VIEWS-LT from 10/14/2016 FINDINGS: No fracture, dislocation, lytic change, or blastic change evident. No significant degenerative change IMPRESSION: Negative left wrist Dictated by: Oliver Hurley MD 11/23/2019 09:47 Electronically signed by Oliver Hurley MD in [place] 11/23/2019 09:47
== END ==
PROVIDERS: PCP Nurse Practitioner Family; Visit Provider Orthopaedic Surgery
DX: G56.03 Carpal tunnel syndrome, bilateral upper limbs (principal)
CPT/HCPCS: 73110

== ENCOUNTER → 2019-12-07 12:25 | Outpatient (POV) | payer OTHER, SELFPAY ==
--- NOTE | 2019-12-07 13:21 | XR_ITS ---
PROCEDURE: XR LUMBAR SPINE MIN 4V CLINICAL INDICATION: BACK PAIN Low back pain COMPARISON: No exams were available for comparison FINDINGS: Normal alignment. No fracture or dislocation. No lytic or blastic change. There is mild degenerative disc disease at L4-5. mild sclerosis of the SI joint superiorly on both sides IMPRESSION: Mild degenerative disc disease L4-5 with mild sclerosis of the SI joints otherwise negative Dictated by: Oliver Hurley MD 12/07/2019 14:31 Electronically signed by Oliver Hurley MD in [place] 12/07/2019 14:31
== END ==
PROVIDERS: PCP Nurse Practitioner Family; Visit Provider Specialist
DX: M79.642 Pain in left hand (principal); M79.641 Pain in right hand; R20.2 Paresthesia of skin
CPT/HCPCS: 72110; 95886; 95909

== ENCOUNTER → 2019-12-23 07:35 | Outpatient (CLI) | payer OTHER, SELFPAY ==
--- NOTE | 2019-12-23 07:35 | MR_ITS ---
PROCEDURE: MR LUMBAR SPINE WO CON CLINICAL INDICATION: back pain Low back pain, difficulty standing COMPARISON: ABDPELW CT ABD PELVIS W/ CONTRAST from 09/03/2016 SPCERVWO MR cervical spine wo con from 10/18/2017 TECHNIQUE: Standard multiplanar multiecho sequences are performed without contrast. 3-D MIP and myelographic images are also rendered and reviewed FINDINGS: There is normal alignment. Spinal cord ends at the T12-L1 level. T12-L1 L1-L2 L2-L3 and L3-L4 show mild facet and ligamentum hypertrophic changes. There is mild foraminal narrowing bilaterally at L3-L4. L4-5: There is disc desiccation with bulging disc and a small central/left paracentral disc protrusion. This is causing some impingement upon the left L5 nerve root. There is facet ligamentum hypertrophy at this level with moderate bilateral lateral recess and foraminal narrowing. L5-S1: Bulging disc which is eccentric toward the right abutting the right S1 nerve root anteriorly without displacement. There is mild facet hypertrophic change with mild bilateral foraminal narrowing. IMPRESSION: 1. Mild facet and ligamentum hypertrophy at T12-L4 2. L4-5: There is disc desiccation with bulging disc and a small central/left paracentral disc protrusion. This is causing some impingement upon the left L5 nerve root. There is facet ligamentum hypertrophy at this level with moderate bilateral lateral recess and foraminal narrowing. 3. L5-S1: Bulging disc which is eccentric toward the right abutting the right S1 nerve root anteriorly without displacement. There is mild facet hypertrophic change with mild bilateral foraminal narrowing. Dictated by: Oliver Hurley MD 12/24/2019 10:40 Electronically signed by Oliver Hurley MD in [place] 12/24/2019 10:40
== END ==
PROVIDERS: PCP Nurse Practitioner Family; Visit Provider Nurse Practitioner Family
DX: M54.9 Dorsalgia, unspecified (principal); M54.5 Low back pain
CPT/HCPCS: 72148; 76376

== ENCOUNTER 2019-12-24 13:00 | Outpatient (RCR) | payer OTHER, SELFPAY | END 2019-12-24 13:05 | disposition home or self-care (01) | LOC: PT 13:00 | PROVIDERS: PCP Nurse Practitioner Family; Visit Provider Nurse Practitioner Family | DX: M54.5 Low back pain (principal) | CPT/HCPCS: 97535; 97163 ==

== ENCOUNTER → 2020-01-26 07:37 | Outpatient (CLI) | payer OTHER, SELFPAY ==
--- NOTE | 2020-01-26 07:58 | XR_ITS ---
PROCEDURE: XR CHEST 2V CLINICAL HISTORY: HTN,TOBACCO USE The COMPARISON: CTAC CTA-CHEST from 09/03/2016 CXR2V XR chest 2V from 08/01/2018 CXR2V XR chest 2V from 02/02/2019 XR CHEST 2V from 10/15/2019 FINDINGS: The cardiomediastinal silhouette and pulmonary vascularity are within normal limits. The lungs are clear without infiltrates, suspicious nodules, or pleural effusions. No acute bony abnormalities. IMPRESSION: No acute findings. Dictated by: Oliver Hurley MD 01/26/2020 14:39 Electronically signed by Oliver Hurley MD in [place] 01/26/2020 14:39
[2020-01-26 08:10] LABS: Basophils # 0.1 K/mm3 (0-0.2); Basophils % 1.2 % (0.1-2.0); Eosinophils # 0.5 K/mm3 (0.0-0.4); Hematocrit 42.1 % (42.0-52.0); Hemoglobin 13.5 g/dL (14.1-18.0); Lymphocytes # 1.7 K/mm3 (0.7-4.5); Lymphocytes % 26.4 % (10-50); Mean Corpuscular HGB Conc 32.1 g/dL (31.8-35.4); Mean Corpuscular Hemoglobin 28.7 pg (27.0-31.2); Mean Corpuscular Volume 89.5 fl (80-94); Mean Platelet Volume 7.2 fl (7.4-10.4); Monocytes # 0.7 K/mm3 (0.1-1.0); Neutrophils # 3.5 K/mm3 (1.8-7.8); Neutrophils % 54.4 % (37.0-80.0); Platelet Count 450 K/mm3 (142-424); Red Cell Distribution Width 14.2 % (11.5-17.5); White Blood Count 6.4 K/mm3 (4.8-10.8)
--- NOTE | 2020-01-26 08:27 | ECG_ITS ---
APPROVED REPORT Exam: Resting ECG HR:75 bpm ECG Measurements Heart Rate 75 AXES KS 116 P 56 QRSd 94 QRS 62 QT 386 T 77 QTc 431 <Conclusion> Normal sinus rhythm Late R wave progression Abnormal ECG Electronically signed by : Sridhar Valdez, 01/26/2020 10:12:59
[2020-01-26 08:44] LABS: Chloride 99 mmol/L (98-107)
[2020-01-26 08:45] LABS: Potassium 4.5 mmoL/L (3.5-5.1); Sodium 135 mmol/L (136-145)
[2020-01-26 08:47] LABS: Blood Urea Nitrogen 14 mg/dl (9-20); Estimated Glomerular Filt Rate 94 ml/min (>60); GFR (African American) 114 ML/MIN (>60)
[2020-01-26 08:48] LABS: Alanine Aminotransferase 18 U/L (12-78); Albumin Level 4.5 g/dl (3.5-5.0); Albumin/Globulin Ratio 1.5 (1.1-1.8); Alkaline Phosphatase 62 U/L (38-126); Anion Gap 9.5 mEq/L (5-15); Aspartate Amino Transferase 25 U/L (17-59); Bilirubin,Total 0.5 mg/dl (0.2-1.3); Calcium 9.8 mg/dl (8.4-10.2); Carbon Dioxide 31 mmol/L (22.0-30.0); Globulin 3.1 g/dL (1.3-3.2); Glucose 83 mg/dl (74-100); Total Protein,Serum 7.6 g/dl (6.3-8.2)
[2020-02-16 16:10] LABS: Covid-19 Nasal PCR Sendout Lex NOT DETECTED
== END ==
PROVIDERS: Visit Provider Orthopaedic Surgery
DX: Z01.818 Encounter for other preprocedural examination (principal); G56.02 Carpal tunnel syndrome, left upper limb
CPT/HCPCS: 36415; 71046; 80053; 85025; 93005; U0004

== ENCOUNTER 2020-01-28 06:40 | Day surgery (SDC) | payer OTHER, SELFPAY ==
--- NOTE | 2020-01-25 09:30 | SUR.PREOP ---
01/25/2020 @ 8971-PHONE CALL MADE TO PATIENT. PATIENT UNDERSTANDS THAT LAB WORK AND COVID TESTING NEEDS TO BE COMPLETED @ 0730 ON 01/26/2020. PATIENT UNDERSTANDS IF LAB WORK AND COVID-19 TESTS ARE NOT COMPLETED BY 12PM ON THAT DATE, THE SURGERY SCHEDULED WILL BE CANCELLED AND RESCHEDULED FOR ANOTHER TIME.
[2020-01-27 10:51] VITALS: BMI 24.4
[2020-01-28 07:11] VITALS: BP 119/63; PULSE 77; RESP 18; TEMP 36.5; O2SAT 98
--- NOTE | 2020-01-28 10:03 | HMH.ANESCL ---
[facility] Anesthesia Checklist - Structural Data Admitted From: Home Planned Operative Procedure/s: l carpal tunnel release Consent for Planned Operative Procedure(s) Verified: Yes - Additional verifications Anesthesia Reactions: No Hx Blood Transfusions: No Blood Transfusion Reaction: No - Airway Assessment C-Spine Mobility Assessed: Yes TMJ Mobility Assessed: Yes Dentition: Poor Dentition - Neurological Assessment Level of Consciousness: Awake, Alert, Appropriate - Anesthesia Plan Anesthesia Risk discussed: Yes Anesthesia Plan: Verified ASA Class: II Anesthesia Type: MAC w/Block - Preoperative Comments Pre-Operative Comments: discussed supraclav block w pt, pt agrees to proceed [facility] History I have reviewed the patient's past medical history: Yes Medical History: Reports:: Anxiety, Chronic Obstructive Pulmonary Disease (COPD), Cerebrovascular Accident, Hypertension, Migraine, Transient Ischemic Attacks (TIA) Denies:: Cancer, Diabetes Mellitus Type 1, Diabetes Mellitus Type 2, Internal Pacemaker, MRSA, Seizures *Have you ever received a pneumonia vaccine?: No *Have you received a flu vaccine this season?: Yes Other Medical History: Reports: Arthritis. Denies: Blood Transfusion Reaction Anesthesia experience/problems:: none Other Surgeries: Yes: Cardiac Catheterization, Cholecystectomy, EGD, Other. No: Pacemaker Amputation: No Fractures: No - *Social History Smoking Status: Current every day smoker Tobacco Type: cigarettes # Packs/Day (cigarettes): 1 #Yrs smoked (if former smoker): 30 Alcohol Intake: never Alcohol Intake Frequency:: other Substance Use Type: painkillers *Occupational Status:: employed Housing: house Household Members: spouse *Travel in the last 8 weeks: None - Psychiatric History Pschychiatric History:: Reports:: Anxiety Family Hx:: Heart Attack, Hypertension, Diabetes
[2020-01-28 10:35] VITALS: BP 113/67; PULSE 68; RESP 18; TEMP 36.4; O2SAT 98
[2020-01-28 10:50] VITALS: BP 120/75; PULSE 67; RESP 18; TEMP 36.4; O2SAT 96
[2020-01-28 11:05] VITALS: BP 141/78; PULSE 62; RESP 18; TEMP 36.4; O2SAT 98
[2020-01-28 11:20] VITALS: BP 141/81; PULSE 65; RESP 18; TEMP 36.4; O2SAT 98
[2020-01-28 13:02] VITALS: TEMP 43
--- NOTE | 2020-01-28 15:27 | HMH.OPNOTE ---
Date of procedure: 01/28/20 Pre-op Diagnosis:: LEFT carpal tunnel syndrome Post-op Diagnosis:: LEFT carpal tunnel syndrome Procedure performed:: LEFT carpal tunnel release Surgeon:: Katharina Berger MD [employer] Merchandiser(s):: LEO Kennedy LEVEL VIAL GRINDER:: Tao Howe Anesthesia: MAC, regional, local Estimated blood loss (mL): 5 Clinical Note:: 39-year-old rchrb-[id number]-hqmwrajz male with complaints of pain, numbness and tingling in bilateral hands. Symptoms have been present for several years but have been tolerable to date. Symptoms are worse in the left hand than the right. 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 He is losing dural mechanic strength in his hands and is frequently dropping objects. Symptoms often wake him at night and have not improved despite bracing on bilateral wrists. He has never had an injury to or surgery on either wrist in the past. EMG?NCS performed on 12/07/2019 was consistent with bilateral median nerve entrapment at the wrist (carpal tunnel syndrome), electrophysiologically moderate/severe, with chronic neuropathic changes in L APB muscle. No history of diabetes or hypothyroidism. Denies neck pain or pain/numbness radiating down either upper extremity. He has a baseline history of migraines, hypertension and a previous hypertension related TIA. I discussed the risks of surgical carpal tunnel release, including but not limited to: bleeding, infection, neurovascular damage, wound dehiscence, persistence of symptoms despite surgery, recurrence of CTS and need for revision surgery in the future. The patient vocalized understanding and provided informed consent for the procedure. Pre-operative labs were within normal limits and covid-19 swab negative. Operative findings:: median nerve compression at the left wrist Operative note:: The patient was identified in preoperative holding and the L wrist signed by myself. Consent was verified with the patient and all questions answered. He was then seen by anesthesia and the decision was made to anesthetize the arm using regional anesthesia with MAC, supplemented with local anesthetic. Supraclavicular nerve block was performed by anesthesia in pre-operative holding. The patient was then transferred to the OR where he was placed supine on the operative table with a hand table attached. 1 g of Ancef was infused intravenously and IV sedation (MAC) administered by anesthesia. Non-sterile tourniquet was placed on the upper L arm and the L wrist/hand prepped and draped in the usual sterile fashion. Timeout was performed, identifying the correct patient, correct procedure, and correct site. The procedure was begun by drawing the desired surgical incision in marking pen using anatomic landmarks over the volar wrist, specifically from the intersection of Bernstein's cardinal line and the radial border of the ring finger, extending proximally to the wrist flexion crease. Local anesthetic consisting onf 10cc 0.5% marcaine w/o epinephrine was infiltrated at the surgical site. Next, incision was made with a 15 blade; after the skin was incised, a blunt-tipped tenotomy scissors was used to bluntly spread the subcutaneous tissue. The patient did not have a readily identifiable palmaris longus but the superficial forearm fascia was visible. Tissue was spread until the transverse carpal ligament was identified; its proximal margin was palpated by a Opheim elevator. I was able to slip the tip of the free air under the proximal edge and into the carpal tunnel. Using a fresh 15 blade, I lightly teased to the fibers of the transverse carpal ligament and release them from proximally to distally using the Opheim to protect the underlying carpal tunnel contents. I continued to cut down onto the Opheim moving distally, until the entire transverse carpal ligament was released. Then, using the blunt tenotomy scissors, I push cut around 5 mm of the dis
== END 2020-01-28 11:20 | disposition home or self-care (01) ==
LOC: OR 06:41
PROVIDERS: PCP Nurse Practitioner Family; Visit Provider Orthopaedic Surgery
PROC: (CPT 64721; principal; 2020-01-28 09:00)
DX: G56.02 Carpal tunnel syndrome, left upper limb (principal)
CPT/HCPCS: 64721; 96374

== ENCOUNTER → 2020-02-22 09:35 | Outpatient (CLI) | payer OTHER, SELFPAY ==
--- NOTE | 2020-02-22 13:22 | CT_ITS ---
PROCEDURE: CT SOFT TISSUE NECK WO CON CLINICAL HISTORY: enlarged lymph node Swollen palpable lymph nodes COMPARISON: No exams were available for comparison TECHNIQUE: Oral Contrast: None IV Contrast: None Axial images obtained with sagittal and coronal reformats. All CT scans at the facility use one or more dose reduction, viz: automated exposure control, ma/kV adjustment per patient size (including targeted exams where dose is matched to indication, i.e. head), or iterative reconstruction technique. FINDINGS: Study is somewhat limited without IV contrast. The adenoids are enlarged. There is asymmetric increased soft tissue density in the right upper nasal pharyngeal region. The fossa of Rosenmuller is obliterated on the right. Cannot exclude the possibility of a nasopharyngeal lesion. Enhanced study may provide further evaluation. The parapharyngeal tonsils are enlarged. The epiglottis has an unremarkable appearance. The glottic and subglottic region are unremarkable. Scattered small nodes are present in the neck. The definite dimensions are difficult to evaluate due to lack of IV contrast. There is asymmetric increased soft tissue density in upper jugular/posterior nodes/level 2 B measuring up to approximately 3 x 2 cm. Other smaller nodes are present in both sides of the neck. The lung apices are clear. No acute bony anomaly. The visualized salivary glands are unremarkable. Mucosal thickening involves the ethmoid sinuses. No maxillary sinus or sphenoid sinus air-fluid level. Mastoid sinuses are unremarkable. The TMJs have an unremarkable appearance. IMPRESSION: 1. Asymmetric prominence of the adenoids right greater than left with possible mass in the right nasopharyngeal region/adenoid area. Suggest enhanced exam for further evaluation. There is obliteration of the right fossa of Rosenmuller. 2. Tonsillar hypertrophy 3. Enlarged left-sided level 2 B lymph node at 3 x 2 cm. Suggest follow-up exam with IV contrast for more thorough evaluation. Consider ENT consult 4. No obvious abscess however, small fluid collections may not be visible without IV contrast. Dictated by: Oliver Hurley MD 02/23/2020 13:03 Electronically signed by Oliver Hurley MD in [place] 02/23/2020 13:03
== END ==
PROVIDERS: PCP Nurse Practitioner Family; Visit Provider Nurse Practitioner Family
DX: R59.0 Localized enlarged lymph nodes (principal)
CPT/HCPCS: 70490

== ENCOUNTER → 2020-02-25 15:13 | Outpatient (CLI) | payer OTHER, SELFPAY ==
--- NOTE | 2020-02-25 15:21 | CT_ITS ---
PROCEDURE: CT HEAD/BRAIN WO/W CON CLINICAL INDICATION: LYMPHADENOPATHY,NASOPHARYNGEAL mass COMPARISON: HEADWO CT head/brain wo con from 09/30/2017 CT SOFT TISSUE NECK WO/W CON from 02/25/2020 TECHNIQUE: IV Contrast: 100ML OPITRAY 320 Axial images obtained. All CT scans at the facility use one or more dose reduction, viz: automated exposure control, ma/kV adjustment per patient size (including targeted exams where dose is matched to indication, i.e. head), or iterative reconstruction technique. FINDINGS: No midline shift, mass effect, intracranial hemorrhage, hydrocephalus, or extra-axial fluid collection is evident. No enhancing lesions are evident. The calvarium has an unremarkable appearance. No mastoid effusion or sinus air-fluid level. IMPRESSION: Negative CT brain without and with contrast Dictated by: Oliver Hurley MD 02/25/2020 16:13 Electronically signed by Oliver Hurley MD in [place] 02/25/2020 16:13
--- NOTE | 2020-02-25 15:21 | CT_ITS ---
PROCEDURE: CT SOFT TISSUE NECK WO/W CON CLINICAL HISTORY: LYMPHADENOPATHY,NASOPHARYNGEAL Left neck mass, nasopharyngeal mass COMPARISON: CT SOFT TISSUE NECK WO CON from 02/22/2020 TECHNIQUE: Oral Contrast: 75 mL Optiray 350 IV Contrast: None Axial images obtained with sagittal and coronal reformats. All CT scans at the facility use one or more dose reduction, viz: automated exposure control, ma/kV adjustment per patient size (including targeted exams where dose is matched to indication, i.e. head), or iterative reconstruction technique. FINDINGS: The exam is performed without and with contrast with the patient phonating. There is prominence of the nasopharyngeal soft tissues with enhancement the nasopharynx on both sides slightly greater on the right compared to the left. This area of enhancement measures 2.8 by 1.7 cm transverse and AP. This region is not well circumscribed. There is obliteration of both fossa of Rosenmuller slightly greater on the right. On the right side the enhancement extends into the parapharyngeal recess. There is narrowing of the airway with mild prominence of the tonsils on both sides.. At the level of the oropharynx, there is obliteration of both parapharyngeal recesses. The epiglottis has an unremarkable appearance as does the uvula. Enlarged left level 2b lymph node once again noted at 3 x 2 cm. This node show some enhancement and is somewhat ill-defined along its margins. Other smaller nodes are present. IMPRESSION: 1. Masslike area of enhancement in the the nasopharyngeal region. This could be inflammatory mass or neoplasm. 2. Enlarged left level IIb lymph node which could be reactive or neoplastic. Ultrasound-guided FNA may be performed if clinically desired Dictated by: Oliver Hurley MD 02/26/2020 11:42 Electronically signed by Oliver Hurley MD in [place] 02/26/2020 11:42
== END ==
PROVIDERS: PCP Nurse Practitioner Family; Visit Provider Otolaryngology
DX: R59.1 Generalized enlarged lymph nodes (principal); J39.2 Other diseases of pharynx
CPT/HCPCS: 70470; 70492; Q9967

== ENCOUNTER → 2020-03-01 09:33 | Outpatient (CLI) | payer OTHER, SELFPAY ==
--- NOTE | 2020-03-01 09:44 | US_ITS ---
PROCEDURE: US BIOPSY SOFT TISSUE CLINICAL INDICATION: LYMPHADENOPATHY,NASOPHARYNGEAL COMPARISON: CT SOFT TISSUE NECK WO/W CON from 02/25/2020 FINDINGS: Following obtaining informed consent and time-out procedure under aseptic conditions and local anesthesia with 1 percent buffered lidocaine with sonographic guidance, fine needle aspiration was performed the soft tissue nodule in the left cervical region. Two passes were made with a 21 gauge needle 1 placed in cytology and 1 put in RPMI. Following this, 2 core biopsies were performed with an 18 gauge biopsy needle. One specimen was put in formalin and 1 and RPMI. The patient tolerated the procedure well without evidence of immediate complications and left radiology suite in stable condition. Pathology: Malignant squamous cell carcinoma IMPRESSION: Ultrasound-guided biopsy of left neck mass performed without complications. Pathology is malignant squamous cell carcinoma Dictated by: Oliver Hurley MD 03/04/2020 14:04 Electronically signed by Oliver Hurley MD in [place] 03/04/2020 14:04
== END ==
PROVIDERS: PCP Nurse Practitioner Family; Visit Provider Otolaryngology
DX: R59.1 Generalized enlarged lymph nodes (principal); J39.2 Other diseases of pharynx
CPT/HCPCS: 38505; 76942

== ENCOUNTER 2020-03-07 18:05 | Emergency (ER) | payer OTHER, SELFPAY ==
[2020-03-07 18:06] VITALS: BP 126/78; PULSE 86; RESP 18; O2SAT 100
[2020-03-07 18:14] VITALS: BP 106/62; PULSE 81; RESP 16; O2SAT 100; BMI 25.4
--- NOTE | 2020-03-07 18:22 | CT_ITS ---
PROCEDURE: CT ANGIO CHEST CLINCIAL INDICATION: ABD PAIN COMPARISON: [facility] CTA-CHEST from 09/03/2016 TECHNIQUE: IV Contrast: 70ML OPTIRAY 350 Axial images obtained with sagittal and coronal reformats. All CT scans at the facility use one or more dose reduction, viz: automated exposure control, ma/kV adjustment per patient size (including targeted exams where dose is matched to indication, i.e. head), or iterative reconstruction technique. FINDINGS: Tracheobronchial tree is unremarkable. There is mild hypoventilation within the dependent portions of both lower lobes. There is a stable 7 mm calcified density in the right upper lobe. Thyroid is unremarkable. There is no CT evidence of pulmonary emboli. Subcentimeter mediastinal lymph nodes are demonstrated. Partially visualized upper abdominal structures, adrenal glands, soft tissues, and the bony structures are unremarkable. IMPRESSION: No CT evidence of pulmonary emboli, stable calcified scar within the right upper lobe Dictated by: Gordon Bowie 03/08/2020 09:11 Electronically signed by Gordon Bowie in [place] 03/08/2020 09:11
--- NOTE | 2020-03-07 18:22 | CT_ITS ---
PROCEDURE: CT ABDOMEN PELVIS W CON CLINICAL INDICATION: ABD PAIN COMPARISON: ABDPELW CT ABD PELVIS W/ CONTRAST from 09/03/2016 TECHNIQUE: IV Contrast: 75ML OPTIRAY 350 Oral Contrast None Axial images obtained with sagittal and coronal reformats. All CT scans at the facility use one or more dose reduction, viz: automated exposure control, ma/kV adjustment per patient size (including targeted exams where dose is matched to indication, i.e. head), or iterative reconstruction technique. FINDINGS: There is mild hypoventilation within both lung bases. The patient is status post cholecystectomy. The enhanced liver adrenal glands, pancreas, spleen, kidneys, aorta, small large bowel, appendix, soft tissues, and the bony structures are unremarkable for mass lesions. CT scan of the pelvis with contrast: Prostate, seminal vesicles, bladder, soft tissues and bony structures are unremarkable. Sigmoid diverticulosis is noted. IMPRESSION: Sigmoid diverticulosis, status post cholecystectomy Dictated by: Gordon Bowie 03/08/2020 09:22 Electronically signed by Gordon Bowie in [place] 03/08/2020 09:22
[2020-03-07 18:50] LABS: Microscopic, Urine URINE MICROSCOPIC (MICROSCOPIC)
[2020-03-07 18:51] LABS: Basophils # 0.1 K/mm3 (0-0.2); Basophils % 0.8 % (0.1-2.0); Eosinophils # 0.9 K/mm3 (0.0-0.4); Eosinophils % 8.3 % (0.1-12.0); Hematocrit 43.9 % (42.0-52.0); Hemoglobin 14.7 g/dL (14.1-18.0); Lymphocytes # 3.3 K/mm3 (0.7-4.5); Lymphocytes % 30.2 % (10-50); Mean Corpuscular HGB Conc 33.4 g/dL (31.8-35.4); Mean Corpuscular Hemoglobin 31.3 pg (27.0-31.2); Mean Corpuscular Volume 93.5 fl (80-94); Mean Platelet Volume 7.7 fl (7.4-10.4); Monocytes # 0.7 K/mm3 (0.1-1.0); Monocytes % 6.8 % (1.7-9.3); Neutrophils # 5.8 K/mm3 (1.8-7.8); Neutrophils % 53.9 % (37.0-80.0); Platelet Count 417 K/mm3 (142-424); Red Blood Count 4.69 M/mm3 (4.60-6.20); Red Cell Distribution Width 13.7 % (11.5-17.5); White Blood Count 10.8 K/mm3 (4.8-10.8)
[2020-03-07 18:52] LABS: Appearance,Urine CLEAR (Clear); Bilirubin,Urine Negative (Negative); Blood, Urine Negative (Negative); Chloride 105 mmol/L (98-107); Color,Urine YELLOW (Yellow); Glucose,Urine (UA) Negative (Negative); Ketones,Urine Negative (Negative); Leukocyte Esterase,Urine Negative (Negative); Nitrate,Urine Negative (Negative); Potassium 3.9 mmoL/L (3.5-5.1); Protein,Urine Negative (Negative); Sodium 137 mmol/L (136-145); Urobilinogen,Urine 0.2 EU/dl (0.2)
[2020-03-07 18:55] LABS: Alanine Aminotransferase 20 U/L (12-78); Alkaline Phosphatase 73 U/L (38-126); Amylase 87 U/L (30-110); Anion Gap 10.9 mEq/L (5-15); Aspartate Amino Transferase 31 U/L (17-59); Bilirubin,Total 0.2 mg/dl (0.2-1.3); Blood Urea Nitrogen 19 mg/dl (9-20); Calcium 9.1 mg/dl (8.4-10.2); Carbon Dioxide 25 mmol/L (22.0-30.0); Creatinine Clearance Estimated 120 mL/min (50-200); Estimated Glomerular Filt Rate 83 ml/min (>60); GFR (African American) 101 ML/MIN (>60); Glucose 97 mg/dl (74-100); Lipase 110 U/L (23-300)
[2020-03-07 18:56] LABS: Albumin Level 4.2 g/dl (3.5-5.0); Albumin/Globulin Ratio 1.2 (1.1-1.8); Globulin 3.5 g/dL (1.3-3.2); Total Protein,Serum 7.7 g/dl (6.3-8.2)
[2020-03-07 19:01] LABS: C-Reactive Protein 11.1 mg/L (0-4)
[2020-03-07 19:02] LABS: Bacteria,Urine Trace /lpf; Squamous Epithelial Cell,Urine Occasional #/hpf (0-5); WBC,Urine Occasional #/hpf (0-3)
--- NOTE | 2020-03-07 19:16 | HMH.EDABDPAI ---
ED Disposition Clinical Impression: Abdominal pain Disposition: Home, Self-Care Condition on Discharge: Good Instructions: DI for Acute Abdomen Prescriptions: haloperidoL [Haldol 5mg tablet] 5 mg PO Q3HP PRN #15 tab PRN Reason: Agitation Transmission Status: Received by [facility] # Quetiapine Fumarate [Seroquel] 300 mg PO HS 30 Days #30 tab Transmission Status: Received by [facility] # Referrals: Candice Rowland APRN [Primary Care Provider] - - Critical Care Critical Care Time: No Attestation: On 03/07/20, the high probability of a clinically significant, sudden or life threatening deterioration of the following system(s) required my full and direct attention, intervention and personal management. The time I documented below is in addition to time spent performing reported procedures but includes the following listed in this critical care notation. Medical Decision Making - Medical Records Medical records reviewed: Yes: I reviewed the patient's medical records. - Gil Inquiry Pt receiving controlled substance: No Vital Signs: 03/07/20 18:06 03/07/20 18:14 Pulse Rate [Right Radial] 86 81 Respiratory Rate 18 16 Blood Pressure [Right Arm] 126/78 106/62 L Blood Pressure Mean [Right Arm] 94 76 Blood Pressure Source [Right Arm] Automatic Cuff Automatic Cuff Blood Pressure Position [Right Arm] Supine Supine 02 Sat by Pulse Oximetry 100 100 Oxygen Delivery Method Room Air - Lab Data Lab results reviewed: Yes: I reviewed the patient's lab results. Lab Results 03/07/20 18:13: Urine Color Yellow, Urine Appearance Clear, Urine pH 6.0, Ur Specific [place] 1.020, Urine Protein Negative, Urine Glucose (UA) Negative, Urine Ketones Negative, Urine Blood Negative, Urine Nitrate Negative, Urine Bilirubin Negative, Urine Urobilinogen 0.2, Ur Leukocyte Esterase Negative, Urine WBC Occasional, Ur Squamous Epith Cells Occasional, Urine Bacteria Trace 03/07/20 18:13: WBC 10.8, RBC 4.69, Hgb 14.7, Hct 43.9, MCV 93.5, MCH 31.3 H, MCHC 33.4, RDW 13.7, Plt Count 417, MPV 7.7, Neut % (Auto) 53.9, Lymph % (Auto) 30.2, [place] % (Auto) 6.8, Eos % (Auto) 8.3, Baso % (Auto) 0.8, Neut # (Auto) 5.8, Lymph # (Auto) 3.3, [place] # (Auto) 0.7, Eos # (Auto) 0.9 H, Baso # (Auto) 0.1, ESR 21 H 03/07/20 18:13: Sodium 137, Potassium 3.9, Chloride 105, Carbon Dioxide 25, Anion Gap 10.9, BUN 19, Creatinine 1.00, Estimated Creat Clear 120, Estimated GFR 83, Est GFR ( Amer) 101, Glucose 97, Calcium 9.1, Total Bilirubin 0.2, AST 31, ALT 20, Alkaline Phosphatase 73, C-Reactive Protein 11.1 H, Total Protein 7.7, Albumin 4.2, Globulin 3.5 H, Albumin/Globulin Ratio 1.2, Amylase 87, Lipase 110 Result diagrams: 03/07/20 18:13 03/07/20 18:13 Orders (Tests/Meds): ED MEDICATIONS Generic Name Dose Route Start Last Admin Trade Name Freq PRN Reason Stop Dose Admin Sodium Chloride 1,000 mls @ 999 mls/hr 03/07/20 18:30 03/07/20 18:40 Sod Chlor 0.9% 1000ml Bag IV 03/07/20 19:30 999 mls/hr .Q1H1M PJ Administration Discontinued Medications Generic Name Dose Route Start Last Admin Trade Name Caseyq PRN Reason Stop Dose Admin Diazepam 10 mg 03/07/20 19:41 03/07/20 19:45 Valium 10mg/2ml Syringe IV 03/07/20 19:42 10 mg ONCE ONE Administration Hydromorphone HCl 2 mg 03/07/20 18:49 03/07/20 18:56 Dilaudid 2mg/Ml Syringe IV 03/07/20 18:50 2 mg ONCE ONE Administration Ioversol 70 ml 03/07/20 19:24 03/07/20 19:25 Rad-Optiray 350 100ml Vial IV 03/07/20 19:25 70 ml ONCE ONE Administration Protocol Ketorolac Tromethamine 30 mg 03/07/20 19:41 03/07/20 19:44 Toradol 30mg/Ml Vial IV 03/07/20 19:42 30 mg ONCE ONE Administration Methylprednisolone Sodium Succinate 125 mg 03/07/20 19:41 03/07/20 19:44 Solu-Medrol 125mg/2ml Vial IV 03/07/20 19:42 125 mg ONCE ONE Administration Morphine Sulfate 4 mg 03/07/20 18:24 03/07/20 18:39 Morphine 4mg/Ml Syringe
[2020-03-07 19:24] LABS: Erythrocyte Sedimentation Rate 21 mm/hr (0-15)
[2020-03-07 20:19] VITALS: BP 142/75; PULSE 73; RESP 19; TEMP 36.7; O2SAT 98
== END 2020-03-07 20:22 | disposition home or self-care (01) ==
PROVIDERS: Emergency Provider Family Medicine; PCP Nurse Practitioner Family
DX: R10.84 Generalized abdominal pain (principal); J44.9 Chronic obstructive pulmonary disease, unspecified; I10 Essential (primary) hypertension; G43.709 Chronic migraine without aura, not intractable, without status migrainosus; F41.8 Other specified anxiety disorders; F17.210 Nicotine dependence, cigarettes, uncomplicated; Z79.899 Other long term (current) drug therapy; D00.08 Carcinoma in situ of pharynx
CPT/HCPCS: 71275; 74177; 80053; 81001; 82150; 83690; 85025; 85651; 86140; 96365; 96375; 99283; J2405; Q9967

== ENCOUNTER → 2020-03-31 10:03 | Outpatient (CLI) | payer OTHER, SELFPAY ==
[2020-04-01 14:05] LABS: Covid-19 Nasal PCR Sendout Lex NOT DETECTED
== END ==
PROVIDERS: PCP Nurse Practitioner Family; Visit Provider Nurse Practitioner Family
DX: Z03.818 Encounter for observation for suspected exposure to other biological agents ruled out (principal)
CPT/HCPCS: U0004

== ENCOUNTER 2020-09-22 16:12 | Emergency (ER) | payer SELFPAY ==
[2020-09-22 16:13] VITALS: BP 144/96; PULSE 77; RESP 14; TEMP 36.8; O2SAT 98; BMI 22.4
--- NOTE | 2020-09-22 16:32 | HMH.EDGENADL ---
ED Disposition Clinical Impression: Occipital headache, Paresthesias Disposition: Home, Self-Care Condition on Discharge: Good Additional Instructions: Take Fioricet as prescribed by primary care provider. Additional instructions for HEADACHE: See your physician as soon as possible for further evaluation. Return immediately if worsening headache, vomiting, problems with vision or speech, fever, numbness or weakness of the extremities, neck pain or stiffness. Referrals: Candice Rowland APRN [Primary Care Provider] - - Critical Care Critical Care Time: No Attestation: On , the high probability of a clinically significant, sudden or life threatening deterioration of the following system(s) required my full and direct attention, intervention and personal management. The time I documented below is in addition to time spent performing reported procedures but includes the following listed in this critical care notation. Medical Decision Making - Gil Inquiry Pt receiving controlled substance: No Vital Signs: 09/22/20 16:13 09/22/20 17:06 09/22/20 17:57 Temperature 98.3 F Temperature Source Oral Pulse Rate [Radial] 77 78 63 Respiratory Rate 14 18 18 Blood Pressure [Right Arm] 144/96 H 154/99 H 144/96 H Blood Pressure Mean [Right Arm] 112 117 112 Blood Pressure Source [Right Arm] Automatic Cuff Automatic Cuff Blood Pressure Position [Right Arm] Sitting Sitting Sitting 02 Sat by Pulse Oximetry 98 100 100 Oxygen Delivery Method Room Air - Lab Data Lab Results 09/22/20 16:40: WBC 6.5, RBC 4.71, Hgb 15.4, Hct 47.0, MCV 99.9 H, MCH 32.8 H, MCHC 32.8, RDW 13.5, Plt Count 429 H, MPV 7.2 L, Neut % (Auto) 65.8, Lymph % (Auto) 18.4, [place] % (Auto) 8.9, Eos % (Auto) 5.9, Baso % (Auto) 0.9, Neut # (Auto) 4.3, Lymph # (Auto) 1.2, [place] # (Auto) 0.6, Eos # (Auto) 0.4, Baso # (Auto) 0.1 09/22/20 16:40: Sodium 134 L, Potassium 4.7, Chloride 96 L, Carbon Dioxide 32 H, Anion Gap 10.7, BUN 20, Creatinine 0.90, Estimated Creat Clear 117, Estimated GFR 94, Est GFR ( Amer) 114, Glucose 95, Calcium 9.7, Total Bilirubin 0.3, AST 26, ALT 19, Alkaline Phosphatase 62, Total Protein 8.3 H, Albumin 4.6, Globulin 3.7 H, Albumin/Globulin Ratio 1.2 Result diagrams: 09/22/20 16:40 09/22/20 16:40 Orders (Tests/Meds): ED MEDICATIONS Generic Name Dose Route Start Last Admin Trade Name Freq PRN Reason Stop Dose Admin Sodium Chloride 1,000 mls @ 999 mls/hr 09/22/20 16:45 09/22/20 16:49 Sod Chlor 0.9% 1000ml Bag IV 09/22/20 17:45 999 mls/hr .Q1H1M PJ Administration Discontinued Medications Generic Name Dose Route Start Last Admin Trade Name Freq PRN Reason Stop Dose Admin Ioversol 50 ml 09/22/20 17:40 09/22/20 17:42 Ioversol-320 (68%) 50ml Bottle IV 09/22/20 17:41 50 ml ONCE ONE Administration Protocol Ioversol 50 ml 09/22/20 17:40 09/22/20 17:42 Ioversol-320 (68%) 50ml Bottle IV 09/22/20 17:41 50 ml ONCE ONE Administration Protocol Ioversol 50 ml 09/22/20 17:40 09/22/20 17:41 Ioversol-320 (68%) 50ml Bottle IV 09/22/20 17:41 50 ml ONCE ONE Administration Protocol Ioversol 50 ml 09/22/20 17:41 09/22/20 17:41 Ioversol-320 (68%) 50ml Bottle IV 09/22/20 17:42 50 ml ONCE ONE Administration Protocol - CT Data CT Scan: Head Time Received: 17:[address] Reviewed: Yes: I have viewed the radiologist's interpretation Findings Narrative: PROCEDURE: CT HEAD/BRAIN WO/W CON CLINICAL INDICATION: headaches, squamous cell nasopharyngeal ca Headache, dizziness, numbness and tingling, history of nasopharyngeal carcinoma COMPARISON: CT CT HEAD/BRAIN WO/W CON from 02/25/2020 TECHNIQUE: IV Contrast: 100ML Isovue 370 Axial images obtained. All CT scans at the facility use one or more dose reduction, viz: automated exposure control, ma/kV adjustment per patient size (including targeted exams where dose is matched to indication, i.e. head
--- NOTE | 2020-09-22 16:39 | CT_ITS ---
PROCEDURE: CT HEAD/BRAIN WO/W CON CLINICAL INDICATION: headaches, squamous cell nasopharyngeal ca Headache, dizziness, numbness and tingling, history of nasopharyngeal carcinoma COMPARISON: CT CT HEAD/BRAIN WO/W CON from 02/25/2020 TECHNIQUE: IV Contrast: 100ML Isovue 370 Axial images obtained. All CT scans at the facility use one or more dose reduction, viz: automated exposure control, ma/kV adjustment per patient size (including targeted exams where dose is matched to indication, i.e. head), or iterative reconstruction technique. FINDINGS: No midline shift, mass effect, intracranial hemorrhage, hydrocephalus, or extra-axial fluid collection is evident. No enhancing lesions are evident. The calvarium has an unremarkable appearance. No mastoid effusion. No sinus air-fluid level IMPRESSION: No acute intracranial findings. No enhancing lesions. No evidence of metastatic disease Dictated by: Oliver Hurley MD 09/22/2020 17:49 Oliver Hurley MD in [place] 09/22/2020 17:49
[2020-09-22 16:52] LABS: Basophils # 0.1 K/mm3 (0-0.2); Basophils % 0.9 % (0.1-2.0); Eosinophils # 0.4 K/mm3 (0.0-0.4); Eosinophils % 5.9 % (0.1-12.0); Hemoglobin 15.4 g/dL (14.1-18.0); Lymphocytes # 1.2 K/mm3 (0.7-4.5); Lymphocytes % 18.4 % (10-50); Mean Corpuscular HGB Conc 32.8 g/dL (31.8-35.4); Mean Corpuscular Hemoglobin 32.8 pg (27.0-31.2); Mean Corpuscular Volume 99.9 fl (80-94); Mean Platelet Volume 7.2 fl (7.4-10.4); Monocytes # 0.6 K/mm3 (0.1-1.0); Monocytes % 8.9 % (1.7-9.3); Neutrophils # 4.3 K/mm3 (1.8-7.8); Neutrophils % 65.8 % (37.0-80.0); Platelet Count 429 K/mm3 (142-424); Red Blood Count 4.71 M/mm3 (4.60-6.20); Red Cell Distribution Width 13.5 % (11.5-17.5); White Blood Count 6.5 K/mm3 (4.8-10.8)
[2020-09-22 16:59] LABS: Chloride 96 mmol/L (98-107); Potassium 4.7 mmoL/L (3.5-5.1); Sodium 134 mmol/L (136-145)
[2020-09-22 17:01] LABS: Blood Urea Nitrogen 20 mg/dl (9-20)
[2020-09-22 17:02] LABS: Alanine Aminotransferase 19 U/L (12-78); Albumin Level 4.6 g/dl (3.5-5.0); Albumin/Globulin Ratio 1.2 (1.1-1.8); Alkaline Phosphatase 62 U/L (38-126); Anion Gap 10.7 mEq/L (5-15); Aspartate Amino Transferase 26 U/L (17-59); Bilirubin,Total 0.3 mg/dl (0.2-1.3); Calcium 9.7 mg/dl (8.4-10.2); Carbon Dioxide 32 mmol/L (22.0-30.0); Creatinine Clearance Estimated 117 mL/min (50-200); Estimated Glomerular Filt Rate 94 ml/min (>60); GFR (African American) 114 ML/MIN (>60); Globulin 3.7 g/dL (1.3-3.2); Glucose 95 mg/dl (74-100); Total Protein,Serum 8.3 g/dl (6.3-8.2)
[2020-09-22 17:06] VITALS: BP 154/99; PULSE 78; RESP 18; O2SAT 100
[2020-09-22 17:57] VITALS: BP 144/96; PULSE 63; RESP 18; O2SAT 100
[2020-09-22 18:15] VITALS: BP 144/96; PULSE 91; RESP 16; TEMP 36.6; O2SAT 98
== END 2020-09-22 18:17 | disposition home or self-care (01) ==
PROVIDERS: Emergency Provider Emergency Medicine; PCP Nurse Practitioner Family
DX: G43.909 Migraine, unspecified, not intractable, without status migrainosus (principal); R20.2 Paresthesia of skin; F17.210 Nicotine dependence, cigarettes, uncomplicated; J44.9 Chronic obstructive pulmonary disease, unspecified; F41.8 Other specified anxiety disorders; D00.08 Carcinoma in situ of pharynx; I10 Essential (primary) hypertension; Z79.899 Other long term (current) drug therapy
CPT/HCPCS: 70470; 80053; 85025; 96365; 99283; Q9967

== ENCOUNTER 2022-05-24 09:20 | Emergency (ER) | payer BC, SELFPAY ==
[2022-05-24] VITALS (8 sets, daily range): BP systolic 126–158; BP diastolic 88–104; PULSE 87–113; RESP 16–18; TEMP 36.9; O2SAT 94–100; BMI 25.7
--- NOTE | 2022-05-24 | ECG_ITS ---
APPROVED REPORT Exam: Resting ECG HR:97 bpm ECG Measurements Heart Rate 97 AXES [place] 113 P 53 QRSd 98 QRS 36 QT 330 T 50 QTc 385 Conclusion SINUS RHYTHM WITH SHORT [place] INTERVAL BORDERLINE ECG UNCONFIRMED REPORT Electronically signed by : Sridhar Valdez MD 05/24/2022 14:45:46
--- NOTE | 2022-05-24 09:23 | PC.NURSE ---
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
--- NOTE | 2022-05-24 09:24 | PC.NURSE ---
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
--- NOTE | 2022-05-24 09:30 | HMH.EDGENADL ---
Discharge Plan Disposition Patient Disposition: Home, Self-Care Condition: Good Prescriptions Prescriptions: New hydrocodone-acetaminophen 5-325 mg tablet 1 tab PO Q6H PRN (Reason: pain) Qty: 7 0RF mupirocin 2 % ointment 1 applic topical TID Qty: 15 0RF clindamycin HCl 300 mg capsule 300 mg PO QID Qty: 28 0RF No Action alprazolam [Xanax] 0.5 mg tablet 0.5 mg PO BID PRN (Reason: anxiety) Qty: 60 0RF amlodipine [Norvasc] 10 mg tablet 10 mg PO BID Qty: 180 2RF levothyroxine 25 mcg tablet 25 mcg PO DAILY propranolol 80 mg capsule,extended release 24 hr 80 mg PO DAILY Vraylar 1.5 mg capsule 1.5 mg PO DAILY Referrals Follow up/Referrals: Clarke Bowie MD [Staff Physician] - See instructions Ger Smith MD [Primary Care Provider] - See instructions Activity Restrictions/Add. Instructions Additional Instructions/Restrictions: Clean the area of your umbilicus gently with a Q-tip in the shower daily. Clindamycin as prescribed. Bactroban ointment 3 times a day. [place] as needed for pain. Follow-up with Dr. Bowie in the office, call for appointment. Return if worsening pain, redness, swelling, fever, vomiting. Clinical Impressions Clinical Impression: Abscess or cellulitis of umbilicus Discharge ED Provider: Jorge Benites General Adult HPI General Chief complaint: Abdominal Pain Stated complaint: Belly button pain and drainage Time Seen by Provider: 05/24/22 09:57 History of Present Illness HPI narrative: Complains of pain and drainage from the umbilical area. He has had pain in his umbilicus and in the supraumbilical area for couple of days and then drainage began today. He some I passed out at work today. Denies fever. He had vomiting yesterday. No change in bowel movements. No prior similar symptoms. He states the pain in his umbilicus feels like the pressure he used to get when he had a gastrostomy tube. He had a gastrostomy tube when he had treatment for head neck cancer. Gastrostomy tube was removed more than a year ago. Related Data Home Medications Medication Instructions Recorded Confirmed cariprazine 1.5 mg capsule 1.5 mg PO DAILY Anxiety 05/24/22 05/24/22 (Vraylar) levothyroxine 25 mcg tablet 25 mcg PO DAILY thyroid 05/24/22 05/24/22 propranolol 80 mg capsule,24 80 mg PO DAILY High blood pressure 05/24/22 05/24/22 hr,extended release Previous Rx's Medication Instructions Recorded amlodipine 10 mg tablet (Norvasc) 10 mg PO BID High blood pressure 12/04/21 #180 tabs alprazolam 0.5 mg tablet (Xanax) 0.5 mg PO BID PRN anxiety #60 tabs 04/30/22 clindamycin HCl 300 mg capsule 300 mg PO QID #28 caps 05/24/22 hydrocodone 5 mg-acetaminophen 325 1 tab PO Q6H PRN pain #7 tabs 05/24/22 mg tablet mupirocin 2 % topical ointment 1 applic topical TID #15 grams 05/24/22 Allergies Allergy/AdvReac Type Severity Reaction Status Date / Time No Known Allergies Allergy Verified 02/22/22 10:04 [facility] Medical History (Updated 05/24/22 @ 11:48 by Jorge Benites MD) Anxiety Head and neck cancer Occipital headache PEG (percutaneous endoscopic gastrostomy) adjustment/replacement/removal Social History Smoking Status: Current every day smoker tobacco type: cigarettes packs per day: 1 second hand exposure: Yes alcohol intake: never substance use type: painkillers current occupational status: other Travel in the last 8 weeks: None household members: other housing: other number of children: 4 current occupational exposures/hazards: Yes caffeine: No ROS Obtained: Yes Systems reviewed as appropriate & no additional complaints except as documented Constitutional Constitutional: Denies fever(s) Cardiovascular Cardiovascular: Denies chest pain and Reports other (Near syncope) Respiratory Respiratory: Denies shortness of breath Gastrointestinal Gastrointestingal: Reports abdominal pain and vo
--- NOTE | 2022-05-24 09:49 | CT_ITS ---
FINAL REPORT CLINICAL HISTORY: umbilical area pain and drainage COMPARISON: March 07, 2020 FINDINGS: CT OF THE ABDOMEN AND PELVIS WITH CONTRAST Axial CT images of the abdomen and pelvis were obtained after the administration of intravenous contrast. Coronal reformatted images were also obtained and reviewed.This study was performed with techniques to keep radiation doses as low as reasonably achievable (ALARA). Individualized dose reduction techniques using automated exposure control or adjustment of mA and/or kV according to the patient's size were employed. Abdomen: There is mild bibasilar atelectasis.. The heart is normal in size. The liver has an unremarkable appearance, without evidence of mass or biliary ductal dilatation. Postoperative changes are seen from cholecystectomy. The spleen is unremarkable. No adrenal mass is present. The pancreas has an unremarkable appearance. The kidneys are normal, without evidence of mass or hydronephrosis. The aorta is normal in caliber. There is no free fluid or adenopathy. There is a small umbilical hernia containing fat only. There is no localized inflammatory process or fluid collection in this region. Pelvis: The appendix is normal. The urinary bladder is unremarkable. No inflammatory process is seen. There is no evidence of mass or adenopathy. There is mild wall thickening of the transverse, descending, and sigmoid colon as well as the rectum. There is no evidence of bowel obstruction. IMPRESSION: No localized inflammatory process or fluid collection. Mild colon and rectal wall thickening that may represent mild colitis. Small umbilical hernia containing fat only. Reviewed, Interpreted and Dictated by Clarke Mercado III, MD Transcribed by Ethan Mclaughlin Authenticated and [facility]
[2022-05-24 09:56] LABS: Basophils # 0.1 K/mm3 (0-0.2); Basophils % 0.8 % (0.1-2.0); Eosinophils # 0.4 K/mm3 (0.0-0.4); Eosinophils % 5.1 % (0.1-12.0); Hematocrit 46.5 % (42.0-52.0); Hemoglobin 14.6 g/dL (14.1-18.0); Lymphocytes % 12.6 % (10-50); Mean Corpuscular HGB Conc 31.5 g/dL (31.8-35.4); Mean Corpuscular Hemoglobin 29.9 pg (27.0-31.2); Mean Corpuscular Volume 94.8 fl (80-94); Mean Platelet Volume 7.1 fl (7.4-10.4); Monocytes # 0.8 K/mm3 (0.1-1.0); Monocytes % 9.4 % (1.7-9.3); Neutrophils # 5.8 K/mm3 (1.8-7.8); Neutrophils % 72.1 % (37.0-80.0); Platelet Count 419 K/mm3 (142-424); Red Cell Distribution Width 15.1 % (11.5-17.5)
--- NOTE | 2022-05-24 09:56 | PC.NURSE ---
updated pt on POC at this time
[2022-05-24 10:00] LABS: Alanine Aminotransferase 28 U/L (12-78); Albumin Level 4.1 g/dl (3.5-5.0); Albumin/Globulin Ratio 1.2 (1.1-1.8); Alkaline Phosphatase 78 U/L (38-126); Anion Gap 9.4 mEq/L (5-15); Aspartate Amino Transferase 28 U/L (17-59); Blood Urea Nitrogen 12 mg/dl (9-20); Calcium 9.1 mg/dl (8.4-10.2); Carbon Dioxide 30 mmol/L (22.0-30.0); Chloride 102 mmol/L (98-107); Creatinine Clearance Estimated 148 mL/min (50-200); Estimated Glomerular Filt Rate 107 ml/min (>60); GFR (African American) 129 ML/MIN (>60); Globulin 3.4 g/dL (1.3-3.2); Glucose 94 mg/dl (74-100); Potassium 4.4 mmoL/L (3.5-5.1); Sodium 137 mmol/L (136-145); Total Protein,Serum 7.5 g/dl (6.3-8.2)
[2022-05-24 10:01] LABS: Bilirubin,Total < 0.1 mg/dl (0.2-1.3)
--- NOTE | 2022-05-24 10:11 | PC.NURSE ---
pt to CT
[2022-05-24 10:14] LABS: Troponin I < 0.01 ng/ml (0.00-0.034)
--- NOTE | 2022-05-24 11:14 | PC.NURSE ---
notified ER Morphine dose that was recently given to pt is not helping per pt report ER reviewing pt preliminary CT scan results at this time Gave verbal order for Ketorlac 30 mg IV once
--- NOTE | 2022-05-24 11:18 | PC.NURSE ---
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 CALLED DR MCKEON FOR ER DOCTOR AND HAD HIM CALL BACK
--- NOTE | 2022-05-24 11:21 | PC.NURSE ---
FRANCI PECK speaking with Dr. Bowie at this time
--- NOTE | 2022-05-24 11:22 | PC.NURSE ---
ER at discussing test results and POC
--- NOTE | 2022-05-24 11:23 | PC.NURSE ---
Per ER MD Dr. Bowie is going to come down and see pt.
--- NOTE | 2022-05-24 11:29 | PC.NURSE ---
Dr. Bowie at [facility]
--- NOTE | 2022-05-24 11:34 | PC.NURSE ---
Dr. Bowie speaking with ER MD after evaluating pt.
--- NOTE | 2022-05-24 11:42 | EXP.SURG.CON ---
History of Present Illness *Admission Date: 05/24/22 *Reason for visit:: Pain in umbilical area *History of present illness: Patient is a 41-year-old male with history of of head neck cancer with previous PEG tube placement which has subsequently been removed greater than a year ago. He presented to the emergency department today due to significant pain and drainage from the umbilical area. He has had pain at the periumbilical location for a couple of days but then developed some drainage today. He had some associated vomiting secondary to the pain. Describes it as a severe pressure. Due to the pain he presented to the emergency department. He was seen and evaluated. He underwent CT scan which revealed findings of no localized inflammatory process or fluid collection. There was noted to be small umbilical hernia containing fat only. Given the degree of his discomfort and symptomatology surgical consultation was obtained. [facility] Medical History (Updated 05/24/22 @ 11:48 by Clarke Bowie MD) Anxiety Head and neck cancer Occipital headache PEG (percutaneous endoscopic gastrostomy) adjustment/replacement/removal Social History Smoking Status: Current every day smoker tobacco type: cigarettes packs per day: 1 second hand exposure: Yes alcohol intake: never substance use type: painkillers current occupational status: other Travel in the last 8 weeks: None household members: other housing: other number of children: 4 current occupational exposures/hazards: Yes caffeine: No Meds Home Medications and Allergies Home Medications Medication Instructions Recorded Confirmed Type amlodipine 10 mg tablet (Norvasc) 10 mg PO BID High blood pressure 12/04/21 05/24/22 Rx #180 tabs alprazolam 0.5 mg tablet (Xanax) 0.5 mg PO BID PRN anxiety #60 tabs 04/30/22 05/24/22 Rx cariprazine 1.5 mg capsule 1.5 mg PO DAILY Anxiety 05/24/22 05/24/22 History (Vraylar) clindamycin HCl 300 mg capsule 300 mg PO QID #28 caps 05/24/22 Rx hydrocodone 5 mg-acetaminophen 325 1 tab PO Q6H PRN pain #7 tabs 05/24/22 Rx mg tablet levothyroxine 25 mcg tablet 25 mcg PO DAILY thyroid 05/24/22 05/24/22 History mupirocin 2 % topical ointment 1 applic topical TID #15 grams 05/24/22 Rx propranolol 80 mg capsule,24 80 mg PO DAILY High blood pressure 05/24/22 05/24/22 History hr,extended release New Prescriptions to Start Prescriptions: clindamycin HCl DelmisJorge hydrocodone-acetaminophen Jorge Benites mupirocin DelmisJorge Allergies Allergy/AdvReac Type Severity Reaction Status Date / Time No Known Allergies Allergy Verified 02/22/22 10:04 Exam (Inpt) Vital signs and Labs for Last 24 Hours: Temp Pulse Resp BP Pulse Ox 98.5 F 87 18 158/103 H 100 05/24/22 09:21 05/24/22 11:30 05/24/22 11:30 05/24/22 11:30 05/24/22 11:30 Laboratory Results - last 24 hr 05/24/22 09:36: WBC 8.0, RBC 4.90, Hgb 14.6, Hct 46.5, MCV 94.8 H, MCH 29.9, MCHC 31.5 L, RDW 15.1, Plt Count 419, MPV 7.1 L, Neut % (Auto) 72.1, Lymph % (Auto) 12.6, [place] % (Auto) 9.4 H, Eos % (Auto) 5.1, Baso % (Auto) 0.8, Neut # (Auto) 5.8, Lymph # (Auto) 1.0, [place] # (Auto) 0.8, Eos # (Auto) 0.4, Baso # (Auto) 0.1 05/24/22 09:36: Sodium 137, Potassium 4.4, Chloride 102, Carbon Dioxide 30, Anion Gap 9.4, BUN 12, Creatinine 0.80, Estimated Creat Clear 148, Estimated GFR 107, Est GFR ( Amer) 129, Glucose 94, Calcium 9.1, Total Bilirubin < 0.1 L, AST 28, ALT 28, Alkaline Phosphatase 78, Troponin I < 0.01, Total Protein 7.5, Albumin 4.1, Globulin 3.4 H, Albumin/Globulin Ratio 1.2 I & O for Labs for Last 24 Hours: Intake & Output 05/21/22 05/22/22 05/23/22 05/24/22 11:59 11:59 11:59 11:59 Weight 190 lb Comments:: Overall his abdomen is soft. Close inspection of the umbilical area reveals an area of prominent granulation deep in the
--- NOTE | 2022-05-24 11:43 | PC.NURSE ---
pt given glass of water at this time, okayed per ER MD to have PO intake pt sitting up in bed, at [facility], states no other needs at this time, call light within reach. Will continue to monitor
== END 2022-05-24 12:31 | disposition home or self-care (01) ==
PROVIDERS: Emergency Provider Emergency Medicine; PCP Emergency Medicine
DX: L02.216 Cutaneous abscess of umbilicus (principal); Z79.899 Other long term (current) drug therapy; Z72.0 Tobacco use
CPT/HCPCS: 74177; 80053; 84484; 85025; 93005; 96365; 96375; 96376; 99284; J2405; Q9967

== ENCOUNTER 2023-04-16 09:28 | Emergency (ER) | payer OTHER, SELFPAY ==
[2023-04-16 09:29] VITALS: BP 158/104; PULSE 110; RESP 18; TEMP 36.8; O2SAT 100; BMI 26.4
--- NOTE | 2023-04-16 09:39 | XR_ITS ---
FINAL REPORT CLINICAL HISTORY: redness and swelling FINDINGS: Right elbow Three views were obtained. There is no acute fracture or dislocation. The joint spaces appear normal. There is posterior soft tissue swelling. IMPRESSION: No acute process. Reviewed, Interpreted and Dictated by Clarke Mercado III, MD Transcribed by Mae Guzman Authenticated and [facility]
--- NOTE | 2023-04-16 09:40 | EXP.UTC ---
Discharge Plan Disposition Patient Disposition: Home, Self-Care Condition: Good Prescriptions Prescriptions: New clindamycin HCl 300 mg capsule 300 mg PO Q8H 7 Days Qty: 21 0RF ibuprofen 600 mg tablet 600 mg PO Q6HP PRN (Reason: Moderate Pain) Qty: 20 0RF No Action Vraylar 3 mg capsule 3 mg PO DAILY Qty: 30 1RF alprazolam [Xanax] 0.5 mg tablet 0.5 mg PO BID PRN (Reason: anxiety) Qty: 60 1RF amlodipine [Norvasc] 10 mg tablet 10 mg PO BID Qty: 180 2RF levothyroxine 25 mcg tablet 25 mcg PO DAILY propranolol 80 mg capsule,extended release 24 hr 80 mg PO DAILY hydrocodone-acetaminophen 5-325 mg tablet 1 tab PO Q6H PRN (Reason: pain) Qty: 7 0RF mupirocin 2 % ointment 1 applic topical TID Qty: 15 0RF clindamycin HCl 300 mg capsule 300 mg PO QID Qty: 28 0RF Referrals Follow up/Referrals: Ger Smith MD [Primary Care Provider] - See instructions Activity Restrictions/Add. Instructions Additional Instructions/Restrictions: *Start antibiotic(s) immediately and be sure to take as ordered for the FULL length of time although you may be feeling better or start to see improvement in the next 24-48 hours *Monitor closely. Outlined redness so that you can monitor easier. Follow up immediately for new or worsening symptoms including but not limited to redness, swelling, streaking from site fever or chills. *Warm compress 15 minutes 3-4 times day *Never squeeze or pop these on your own. Seek immediate medical attention next time this occurs *Monitor Temp. Tylenol every 4 hours as needed and ibuprofen every 6 hours as needed (as long as your primary care doctor has told you that it is ok to take both. For fever, aches, pain. ER if no less that 101 despite Tylenol and ibuprofen ?Follow up with your family doctor/primary care physician in the next 48-72 hours if no improvement Clinical Impressions Clinical Impression: Cellulitis Qualifiers: Site of cellulitis: unspecified site Qualified Code(s): L03.90 - Cellulitis, unspecified Stand Alone Forms Stand Alone Forms: Work/School Release Instructions Patient Instructions: Cellulitis, Clindamycin Discharge ED Provider: Lenka Salgado [facility] [place] General Stated complaint: right elbow pain, no accident Mode of Arrival: Ambulatory Source of Information: Patient Limitations: No Limitations Time Seen by Provider: 04/16/23 09:40 Description of Symptoms (Recalled from Triage Doc. by RN): Patient reports right elbow pain, redness and swelling since yesterday. No known accident. HEENT Symptoms (Recalled from RN notes): No Resp Symptoms (Recalled from RN notes): No Skin Symptoms (Recalled from RN notes): No MS Symptoms (Recalled from RN notes): Yes Functional Status (Recalled from RN notes): wnl History of Present Illness Provider Complaint: Patient states he was crawling around in the barn yesterday and when he got home he noticed his elbow felt sore and hurt when he would put it down on something States that this morning he woke up and it was looking a little red and felt warm to the touch so he came in to get it checked denies known injury states that he is unsure if something may have bitten him or poked him Related Data Home Medications Medication Instructions Recorded Confirmed levothyroxine 25 mcg tablet 25 mcg PO DAILY thyroid 05/24/22 06/24/22 propranolol 80 mg capsule,24 80 mg PO DAILY High blood pressure 05/24/22 06/24/22 hr,extended release Previous Rx's Medication Instructions Recorded amlodipine 10 mg tablet (Norvasc) 10 mg PO BID High blood pressure 12/04/21 #180 tabs clindamycin HCl 300 mg capsule 300 mg PO QID #28 caps 05/24/22 hydrocodone 5 mg-acetaminophen 325 1 tab PO Q6H PRN pain #7 tabs 05/24/22 mg tablet mupirocin 2 % topical ointment 1 applic topical TID #15 grams 05/24/22 alprazolam 0.5 mg tablet (Xanax) 0.5 mg PO BID PRN anxiety #60 tabs 06/04/22 cariprazine 3 mg capsule (Vraylar) 3
[2023-04-16 10:30] LABS: Uric Acid 6.8 mg/dl (3.5-8.5)
[2023-04-16 11:59] VITALS: BP 158/104; PULSE 110; RESP 18; TEMP 36.8; O2SAT 100
== END 2023-04-16 12:00 | disposition home or self-care (01) ==
PROVIDERS: Emergency Provider Nurse Practitioner; PCP Emergency Medicine
DX: L03.113 Cellulitis of right upper limb (principal); F17.210 Nicotine dependence, cigarettes, uncomplicated; F41.9 Anxiety disorder, unspecified
CPT/HCPCS: 73080; 84550; 99204; 99212; G0463

== ENCOUNTER 2023-09-04 09:04 | Emergency (ER) | payer OTHER, SELFPAY ==
--- NOTE | 2023-09-04 09:28 | EXP.UTC ---
Discharge Plan Disposition Patient Disposition: Home, Self-Care Prescriptions Prescriptions: New methylprednisolone 4 mg Tablets,Dose Pack 4 mg PO DIRECTED Qty: 21 0RF amoxicillin-pot clavulanate 875-125 mg Tablet 1 tab PO Q12H Qty: 20 0RF No Action Vraylar 3 mg capsule 3 mg PO DAILY Qty: 30 1RF alprazolam [Xanax] 0.5 mg tablet 0.5 mg PO BID PRN (Reason: anxiety) Qty: 60 1RF amlodipine [Norvasc] 10 mg tablet 10 mg PO BID Qty: 180 2RF levothyroxine 25 mcg tablet 25 mcg PO DAILY propranolol 80 mg capsule,extended release 24 hr 80 mg PO DAILY hydrocodone-acetaminophen 5-325 mg tablet 1 tab PO Q6H PRN (Reason: pain) Qty: 7 0RF mupirocin 2 % ointment 1 applic topical TID Qty: 15 0RF ibuprofen 600 mg tablet 600 mg PO Q6HP PRN (Reason: Moderate Pain) Qty: 20 0RF Referrals Follow up/Referrals: Candice Rowland APRN [Primary Care Provider] - See instructions Activity Restrictions/Add. Instructions Additional Instructions/Restrictions: Drink plenty of fluids. Take tylenol or ibuprofen for pain or fever. Take the medications as directed. Follow up with your regular doctor. GO TO THE ER FOR ANY WORSENING SYMPTOMS Clinical Impressions Clinical Impression: Otitis media Stand Alone Forms Stand Alone Forms: Work/School Release Instructions Patient Instructions: Middle Ear Infection Discharge ED Provider: Arthur Brooks [facility] General Stated complaint: ear pain Time Seen by Provider: 09/04/23 09:27 History of Present Illness Provider Complaint: He states that he has had worsening right ear pain for the past 3 days. He has had influenza over the past 1 week. He states that he is feeling better, but now his ear in hurting bad. Related Data Home Medications Medication Instructions Recorded Confirmed levothyroxine 25 mcg tablet 25 mcg PO DAILY thyroid 05/24/22 06/24/22 propranolol 80 mg capsule,24 80 mg PO DAILY High blood pressure 05/24/22 06/24/22 hr,extended release Previous Rx's Medication Instructions Recorded amlodipine 10 mg tablet (Norvasc) 10 mg PO BID High blood pressure 12/04/21 #180 tabs hydrocodone 5 mg-acetaminophen 325 1 tab PO Q6H PRN pain #7 tabs 05/24/22 mg tablet mupirocin 2 % topical ointment 1 applic topical TID #15 grams 05/24/22 alprazolam 0.5 mg tablet (Xanax) 0.5 mg PO BID PRN anxiety #60 tabs 06/04/22 cariprazine 3 mg capsule (Vraylar) 3 mg PO DAILY #30 caps 06/04/22 ibuprofen 600 mg tablet 600 mg PO Q6HP PRN Moderate Pain 04/16/23 #20 tabs amoxicillin 875 mg-potassium 1 tab PO Q12H #20 tabs 09/04/23 clavulanate 125 mg tablet methylprednisolone 4 mg tablets in 4 mg PO DIRECTED #21 tabs 09/04/23 a dose pack Allergies Allergy/AdvReac Type Severity Reaction Status Date / Time No Known Allergies Allergy Verified 09/04/23 09:38 [facility] Disclaimer: The information contained in this section may have been updated after the patient was seen, as this information can be updated by other users. Medical History (Updated 09/04/23 @ 09:43 by Arthur Brooks APRN) Anxiety Head and neck cancer Occipital headache PEG (percutaneous endoscopic gastrostomy) adjustment/replacement/removal Social History Smoking Status: Current every day smoker tobacco type: cigarettes packs per day: 1 second hand exposure: Yes alcohol intake: never substance use type: painkillers current occupational status: other Travel in the last 8 weeks: None household members: other housing: other number of children: 4 current occupational exposures/hazards: Yes caffeine: No ROS Obtained: Yes All systems reviewed & no additional complaints except as documented Constitutional Constitutional: Denies chills, Reports fever(s) and Reports poor appetite Eyes Eyes: Denies eye discharge ENT Ears, Nose, Mouth, and Throat: Denies ear discharge, Reports ot
[2023-09-04 09:33] VITALS: BP 126/87; PULSE 78; RESP 18; TEMP 36.8; O2SAT 100; BMI 27.1
[2023-09-04 09:47] VITALS: BP 126/87; PULSE 78; RESP 18; TEMP 36.8; O2SAT 100
== END 2023-09-04 09:46 | disposition home or self-care (01) ==
LOC: ER 09:08 → UTC 09:09
PROVIDERS: Emergency Provider Nurse Practitioner Family; PCP Nurse Practitioner Family
DX: H66.93 Otitis media, unspecified, bilateral (principal); R07.0 Pain in throat; R05.9 Cough, unspecified; R50.9 Fever, unspecified; F17.210 Nicotine dependence, cigarettes, uncomplicated
CPT/HCPCS: 99212; 99214; G0463

== ENCOUNTER 2024-02-25 16:19 | Outpatient (CLI) | payer OTHER, SELFPAY ==
[2024-02-25 18:27] LABS: Thyroid Stimulating Hormone 6.75 uIU/mL (0.465-4.68)
[2024-02-25 19:00] LABS: Free T4 (Free Thyroxine) 0.89 ng/dl (0.78-2.19)
== END 2024-02-25 23:59 | disposition home or self-care (01) ==
LOC: LAB 16:20
PROVIDERS: Visit Provider Internal Medicine Medical Oncology
DX: C14.0 Malignant neoplasm of pharynx, unspecified (principal); R53.82 Chronic fatigue, unspecified; F17.210 Nicotine dependence, cigarettes, uncomplicated
CPT/HCPCS: 36415; 84439; 84443